=== PATIENT | male | born 1965 | race Caucasian/White ===

== ENCOUNTER → 2022-11-15 | Outpatient (CLI) | payer OTHER ==
[2022-11-15 14:52] LABS: African American GFR (CKD) 110.3 (60.0-200.0); Anion Gap 10.4 mmol/L (10.00-18.00); Carbon Dioxide 25.6 mmol/L (20.0-27.5); Non-African American GFR(CKD) 95.1 (60.0-200.0); Potassium 4.8 mmol/L (3.5-5.5)
== END | disposition home or self-care (01) ==
LOC: LABWHC1 09:07
PROVIDERS: ATTEND Internal Medicine Interventional Cardiology
DX: R06.02 Shortness of breath (principal)
CPT/HCPCS: 36415; 80051; 82565; 84520

== ENCOUNTER → 2023-06-28 | Outpatient (CLI) | payer OTHER ==
--- NOTE | 2023-06-28 15:36 | XR ---
EXAMINATION TYPE: XR chest 2V DATE OF EXAM: 06/28/2023 3:07 PM COMPARISON: None TECHNIQUE: XR chest 2V Frontal and lateral views of the chest. CLINICAL INDICATION:Male, 58 years old with history of R06.02; FINDINGS: Lungs/Pleura: There is no evidence of pleural effusion, focal consolidation, or pneumothorax. Promin ent bilateral perihilar lung markings. Pulmonary vascularity: Unremarkable. Heart/mediastinum: Cardiomediastinal silhouette is unremarkable. Musculoskeletal: No acute osseous pathology. IMPRESSION: Prominent bilateral perihilar lung markings. Correlate for bronchitis.
[2023-06-28 20:45] LABS: HGB 17.3 d/dL (13.0-17.0); MCH 35.1 pg (27.0-32.0); MCHC 35.3 d/dL (32.0-37.0); MCV 99.4 FL (80.0-97.0); NRBC Per 100 WBC 0 X 10*3/uL (0.00-0.01); Platelet Count 104 X 10*3/uL (140-440); RBC 4.93 X 10*6/uL (4.40-5.60); RDW 12.3 % (11.5-14.5); WBC 5.69 X 10*3/uL (4.50-10.00)
[2023-06-28 21:52] LABS: ALT 20 U/L (10-49); AST 29 U/L (14-35); Albumin 4.6 d/dL (3.8-4.9); Albumin/Globulin Ratio 1.84 Ratio (1.60-3.17); Alkaline Phosphatase 81 U/L (41-126); BUN/Creat Ratio 13.67 Ratio (12.00-20.00); Blood Urea Nitrogen 12.3 mg/dL (9.0-27.0); Carbon Dioxide 26.6 mmol/L (21.6-31.8); Chloride 98 mmol/L (96-109); Globulin 2.5 d/dL (1.6-3.3); Glucose 90 mg/dL (70-110); Potassium 6.6 mmol/L (3.5-5.5); Sodium 133 mmol/L (135-145); Total Bilirubin 0.7 mg/dL (0.3-1.2); Total Protein 7.1 d/dL (6.2-8.2)
== END | disposition home or self-care (01) ==
LOC: LABWHC1 14:02
PROVIDERS: ATTEND Internal Medicine Interventional Cardiology
DX: R06.02 Shortness of breath (principal)
CPT/HCPCS: 36415; 71046; 80053; 85027

== ENCOUNTER → 2023-06-29 | Outpatient (CLI) | payer OTHER ==
[2023-06-29 12:23] LABS: African American GFR (CKD) >90 (>60 ml/min/1.73 sqM); Anion Gap 6 mmol/L; Blood Urea Nitrogen 7 mg/dL (9-20); Calcium 9.3 mg/dL (8.4-10.2); Carbon Dioxide 25 mmol/L (22-30); Chloride 100 mmol/L (98-107); Glucose 90 mg/dL (74-99); Non-African American GFR(CKD) >90 (>60 ml/min/1.73 sqM); Potassium 5.6 mmol/L (3.5-5.1); Sodium 131 mmol/L (137-145)
== END | disposition home or self-care (01) ==
LOC: LABWHC1 11:41
PROVIDERS: ATTEND Nurse Practitioner Adult Health
DX: E87.5 Hyperkalemia (principal)
CPT/HCPCS: 36415; 80048

== ENCOUNTER → 2023-07-18 | Outpatient (CLI) | payer OTHER | END | disposition home or self-care (01) | LOC: LABWHC1 10:29 | PROVIDERS: ATTEND Internal Medicine Interventional Cardiology | DX: E87.5 Hyperkalemia (principal) | CPT/HCPCS: 36415; 84132 ==

== ENCOUNTER 2023-08-09 10:03 | Inpatient (IN) | payer OTHER ==
[2023-08-09] MEDS ORDERED: SODIUM CHLORIDE 0.9% 1,000 ML IV ONE (10:22)
[2023-08-09] MEDS ORDERED: DILTIAZEM DRIP BOLUS FROM BAG 1 MG SOLN IV ONE (10:22)
[2023-08-09] MEDS ORDERED: DILTIAZEM 125 MG in SODIUM CHLORIDE 0.9% 100 ML IV SCH (10:30)
[2023-08-09 10:34] LABS: Basophils % (A) 1 %; Eosinophils # (A) 0.1 k/uL (0-0.7); Eosinophils % (A) 1 %; HGB 15.6 gm/dL (13.0-17.5); Lymphocytes % (A) 28 %; MCH 35.5 pg (25.0-35.0); MCHC 33.8 g/dL (31.0-37.0); Macrocytosis Slight; Mean Platelet Volume 9.1; Monocytes # (A) 0.2 k/uL (0-1.0); Monocytes % (A) 3 %; Neutrophils # (A) 4.7 k/uL (1.3-7.7); Neutrophils % (A) 66 %; Platelet Count 136 k/uL (150-450); RBC 4.38 m/uL (4.30-5.90); RDW 13.5 % (11.5-15.5); WBC 7.2 k/uL (3.8-10.6)
[2023-08-09 10:51] LABS: African American GFR (CKD) 76 (>60 ml/min/1.73 sqM); Albumin 3.9 g/dL (3.5-5.0); Anion Gap 13 mmol/L; Blood Urea Nitrogen 20 mg/dL (9-20); Calcium 8.7 mg/dL (8.4-10.2); Carbon Dioxide 16 mmol/L (22-30); Chloride 105 mmol/L (98-107); Glucose 119 mg/dL (74-99); Magnesium 1.6 mg/dL (1.6-2.3); Non-African American GFR(CKD) 66 (>60 ml/min/1.73 sqM); Sodium 134 mmol/L (137-145); Total Protein 6.8 g/dL (6.3-8.2)
[2023-08-09 10:52] LABS: ALT 31 U/L (4-49); AST 49 U/L (17-59); Alkaline Phosphatase 75 U/L (38-126)
[2023-08-09 11:03] LABS: INR 1.3 (<1.2); Partial Thromboplastin Time 26.1 sec (22.0-30.0); Prothrombin Time 13.6 sec (9.0-12.0)
[2023-08-09 11:26] LABS: Potassium 4.3 mmol/L (3.5-5.1)
--- NOTE | 2023-08-09 11:46 | XR ---
EXAMINATION TYPE: XR chest 2V DATE OF EXAM: 08/09/2023 11:40 AM COMPARISON: Chest radiographs from 06/28/2023, CTA chest 08/09/2023 TECHNIQUE: XR chest 2V Frontal and lateral views of the chest. CLINICAL INDICATION:Male, 58 years old with history of dysrhythmia; FINDINGS: Lungs/Pleura: Hyperinflation. Scattered perihilar reticular opacities. Blunting of both costophrenic angles. Heart/mediastinum: Cardiomediastinal silhouette is mildly enlarged. Musculoskeletal: No acute osseous pathology. IMPRESSION: Cardiomegaly with small bilateral pleural effusions and scattered perihilar reticular opacities. Find ings concerning for CHF exacerbation. Correlate with BNP. Superimposed infectious process is not excl uded.
--- NOTE | 2023-08-09 11:49 | CT ---
EXAMINATION TYPE: CT chest angio for PE CT DLP: 252.9 mGycm, Automated exposure control for dose reduction was used. DATE OF EXAM: 08/09/2023 11:37 AM COMPARISON: None CLINICAL INDICATION:Male, 58 years old with history of elevated d-dimer; SOB TECHNIQUE/CONTRAST: CTA scan of the thorax is performed with IV Contrast, patient injected with 90cc mL of Isovue 370, DE P images are created and reviewed these are created on a separate workstation.. FINDINGS: Pulmonary Artery: There is no evidence for a filling defect within the pulmonary vasculature to sugge st acute pulmonary embolism. The pulmonary artery is of normal size. Lungs/Pleura: There are small bilateral pleural effusions. Airway: Large airways are patent. Heart: Heart the heart is enlarged for size. There is moderate to severe coronary artery calcificatio ns. Vasculature: No evidence of aortic aneurysm. Reflux of contrast within the IVC likely secondary to co ngestive heart failure. Mediastinum: No gross evidence of adenopathy. Musculoskeletal: Mild degenerative disc disease changes are present throughout the thoracolumbar spin e. Soft Tissues: Mild gynecomastia changes bilaterally. Lower neck: No significant findings. Upper Abdomen: Small amount of ascites in upper abdomen. Coronal IMPRESSION: 1. No evidence of pulmonary embolism. 2. Cardiomegaly with bilateral pleural effusions and pulmonary vascular congestion correlate for esa estive heart failure. 3. Trace abdominal ascites partially visualized.
[2023-08-09] MEDS ORDERED: ASPIRIN 81 MG PO STA (12:49)
[2023-08-09] MEDS ORDERED: HEPARIN SODIUM 1,000 UN/ML (10ML VL) IV PRN (12:50)
[2023-08-09] MEDS ORDERED: HEPARIN SODIUM 1,000 UN/ML (10ML VL) IV ONE (12:50)
[2023-08-09] MEDS ORDERED: HEPARIN SOD,PORK IN 0.45% NACL 25,000 UNIT in 0.45% NACL 1 250ML.BAG IV SCH (13:00)
--- NOTE | 2023-08-09 13:01 | ED ---
Arrhythmia/Palpitations HPI - General Chief Complaint: Arrhythmia/Palpitations Stated Complaint: SOB Time Seen by Provider: 08/09/23 10:05 Source: patient Mode of arrival: EMS Limitations: no limitations - History of Present Illness Initial Comments: 58-year-old male with no past reported medical history who presents to the emergency department from work. States that he was at work when he became short of breath. States that he gets exertional shortness of breath ever since he had bronchitis one month ago. He denies any palpitations. No chest pain. Upon EMS picking the patient up, it was found that he had a rapid heart rate of 180. They gave him 6 mg of adenosine followed by 12 mg of adenosine with no improvement in his heart rate. He has no history of A. fib. Does follow with Dr. Guerrero for "family history" of heart problems. He does not take a blood thinner. He denies fevers, chills or cough. No nausea or vomiting. No other alleviating, precipitating or modifying factors - Related Data Previous Rx's Medication Instructions Recorded Apixaban [Eliquis] 5 mg PO BID 30 Days #60 tab 08/12/23 Atorvastatin [Lipitor] 40 mg PO HS 30 Days #30 tab 08/12/23 Furosemide [Lasix] 20 mg PO DAILY 7 Days #7 tab 08/12/23 Metoprolol Tartrate [Lopressor] 50 mg PO BID 30 Days #60 tab 08/12/23 Allergies Allergy/AdvReac Type Severity Reaction Status Date / Time Penicillins AdvReac Nausea & Verified 08/09/23 13:53 Vomiting & Diarrhea Review of Systems ROS Statement: Those systems with pertinent positive or pertinent negative responses have been documented in the HPI. ROS Other: All systems not noted in ROS Statement are negative. Past Medical History Past Medical History: Atrial Fibrillation History of Any Multi-Drug Resistant Organisms: None Reported Past Surgical History: No Surgical Hx Reported Past Psychological History: No Psychological Hx Reported Smoking Status: Never smoker Past Alcohol Use History: Occasional Past Drug Use History: None Reported General Exam Limitations: no limitations General appearance: alert, in no apparent distress Head exam: Present: atraumatic, normocephalic, normal inspection Eye exam: Present: normal appearance, PERRL, EOMI. Absent: scleral icterus, conjunctival injection, periorbital swelling ENT exam: Present: normal exam, mucous membranes moist Neck exam: Present: normal inspection. Absent: tenderness, meningismus, lymphadenopathy Respiratory exam: Present: normal lung sounds bilaterally. Absent: respiratory distress, wheezes, rales, rhonchi, stridor Cardiovascular Exam: Present: tachycardia, irregular rhythm, normal heart sounds. Absent: systolic murmur, diastolic murmur, rubs, gallop, clicks GI/Abdominal exam: Present: soft, normal bowel sounds. Absent: distended, tenderness, guarding, rebound, rigid Extremities exam: Present: normal inspection, full ROM, normal capillary refill. Absent: tenderness, pedal edema, joint swelling, calf tenderness Back exam: Present: normal inspection Neurological exam: Present: alert, oriented X3, CN II-XII intact Psychiatric exam: Present: normal affect, normal mood Skin exam: Present: warm, dry, intact, normal color. Absent: rash Course Vital Signs 08/09/23 08/09/23 08/09/23 10:05 10:18 10:54 Temperature 97.0 F L Pulse Rate 172 H 176 H 140 H Pulse Rate [ 176 H Remote Sensing Specialist ] Respiratory 20 18 18 Rate Blood Pressure 122/102 100/59 122/104 O2 Sat by Pulse 99 99 99 Oximetry 08/09/23 08/09/23 08/09/23 11:49 12:24 15:44 Temperature Pulse Rate 132 H 111 H 88 Pulse Rate [ Remote Sensing Specialist ] Respiratory 18 18 18 Rate Blood Pressure 109/86 118/91 125/84 O2 Sat by Pulse 95 99 98 Oximetry 08/09/23 08/09/23 16:22 16:34 Temperature 98.3 F Pulse Rate 126 H Pulse Rate [ Remote Sensing Specialist ] Respiratory 18 Rate Blood Pressure 115/94 O2 Sat by Pulse 99 Oximetry Medical Decision Making - Medical Decision Making Was pt. sent in by a medical professional or institution (, PA, REAL ESTATE ACCOUNTANT, urgent care, hospital, or shelter...) When possible be specific @ -No Did you speak to anyone other than the patient for history (EMS, parent, family, police, friend...)? What history was obtained from this source @ -EMS Did you review nursing and triage notes (agree or disagree)? Why? @ -I reviewed and agree with nursing and triage notes Were old charts reviewed (outside hosp., previous admission, EMS record, old EKG, old radiological studies, urgent care reports/EKG's, shelter records)? Report findings @ -No old charts were reviewed Differential Diagnosis (chest pain, altered mental status, abdominal pain women, abdominal pain men, vaginal bleeding, weakness, fever, dyspnea, syncope, headache, dizziness, GI bleed, back pain, seizure, CVA, palpatations, mental health, musculoskeletal)? @ -Differential Palpitations Ventricular arrhythmias, atrial arrhythmias, myocardial infarction, anemia, thyrotoxicosis, electrolyte imbalance, hypokalemia, pulmonary embolism, pulmonary disease, drugs, alcohol, anxiety, stress.... This is not meant to be an all-inclusive list. EKG interpreted by me (3pts min.). @ -Yes and demonstrates A. fib with rate of 178. QRS 85. QTC of 341. No acute ST segment elevations or depressions. Q waves in inferior leads X-rays interpreted by me (1pt min.). @ -Yes and demonstrates some mild vascular congestion with pleural effusions CT interpreted by me (1pt min.). @ -Yes, no evidence of PE. Evidence of heart failure U/S interpreted by me (1pt. min.). @ -None done What testing was considered but not performed or refused? (CT, X-rays, U/S, labs)? Why? @ -None What meds were considered but not given or refused? Why? @ -None Did you discuss the management of the patient with other professionals (professionals i.e. , PA, REAL ESTATE ACCOUNTANT, lab, RT, psych nurse, social service technician, risk management specialist, teacher, antisubmarine weapons officer, case maker)? Give summary @ -Spoke with cardiology, [place] with Dr. Correa. I also spoke with Dr. Francisco Was smoking cessation discussed for >3mins.? @ -No Was critical care preformed (if so, how long)? @ -Yes, 35 minutes for management of A. fib with RVR Were there social determinants of health that impacted care today? How? (Homelessness, low income, unemployed, alcoholism, drug addiction, transportation, low edu. Level, literacy, decrease access to med. care, care home, rehab)? @ -No Was there de-escalation of care discussed even if they declined (Discuss DNR or withdrawal of care, Hospice)? DNR status @ -No What co-morbidities impacted this encounter? (DM, HTN, Smoking, COPD, CAD, Cancer, CVA, ARF, Chemo, Hep., AIDS, mental health diagnosis, sleep apnea, morbid obesity)? @ -None Was patient admitted / discharged? Hospital course, mention meds given and route, prescriptions, significant lab abnormalities, going to OR and other pertinent info. @ -Admitted. Upon arrival patient was placed in a trauma 3. He has a markedly elevated heart rate. IV is established and laboratory studies are conducted. He was started on a Cardizem drip. Laboratory studies are conducted and demonstrates that the patient has an elevated troponin level. He is started on a heparin drip. Patient does have improvement in his heart rate. He will be admitted for cardiology consultation. Spoke with Dr. Correa and Dr. Francisco. Undiagnosed new problem with uncertain prognosis? @ -yes Drug Therapy requiring intensive monitoring for toxicity (Heparin, Nitro, Insulin, Cardizem)? @ -yes, cardizem and heparin Were any procedures done? @ -No Diagnosis/symptom? @ -Acute palpitations, new-onset A. fib with RVR, acute exacerbation of congestive heart failure, nSTEMI Acute, or Chronic, or Acute on Chronic? @ -Acute Uncomplicated (without systemic symptoms) or Complicated (systemic symptoms)? @ -Complicated Side effects of treatment? @ -No Exacerbation, Progression, or Severe Exacerbation? @ -No Poses a threat to life or bodily function? How? (Chest pain, USA, MD, pneumonia, PE, COPD, DKA, ARF, appy, cholecystitis, CVA, Diverticulitis, Homicidal, Suicida l, threat to staff... and all critical care pts) @ -Yes patient has significantly elevated heart rate upon arrival - Lab Data Result diagrams: 08/09/23 10:22 08/10/23 10:34 Lab Results 08/09/23 08/09/23 08/09/23 Range/Units 10:22 10:22 10:22 WBC 7.2 (3.8-10.6) k/uL RBC 4.38 (4.30-5.90) m/uL Hgb 15.6 (13.0-17.5) gm/dL Hct 46.0 (39.0-53.0) % MCV 105.0 H (80.0-100.0) fL MCH 35.5 H (25.0-35.0) pg MCHC 33.8 (31.0-37.0) g/dL RDW 13.5 (11.5-15.5) % Plt Count 136 L (150-450) k/uL MPV 9.1 Neutrophils % 66 % Lymphocytes % 28 % Monocytes % 3 % Eosinophils % 1 % Basophils % 1 % Neutrophils # 4.7 (1.3-7.7) k/uL Lymphocytes # 2.0 (1.0-4.8) k/uL Monocytes # 0.2 (0-1.0) k/uL Eosinophils # 0.1 (0-0.7) k/uL Basophils # 0.0 (0-0.2) k/uL Macrocytosis Slight PT 13.6 H (9.0-12.0) sec INR 1.3 H (<1.2) APTT 26.1 (22.0-30.0) sec D-Dimer 4.81 H (<0.60) mg/L FEU Sodium 134 L (137-145) mmol/L Potassium 4.3 (3.5-5.1) mmol/L Chloride 105 (98-107) mmol/L Carbon Dioxide 16 L (22-30) mmol/L Anion Gap 13 mmol/L BUN 20 (9-20) mg/dL Creatinine 1.22 (0.66-1.25) mg/dL Est GFR (CKD-EPI)AfAm 76 (>60 ml/min/1.73 sqM) Est GFR (CKD-EPI)NonAf 66 (>60 ml/min/1.73 sqM) Glucose 119 H (74-99) mg/dL Calcium 8.7 (8.4-10.2) mg/dL Magnesium 1.6 (1.6-2.3) mg/dL Total Bilirubin 2.0 H (0.2-1.3) mg/dL AST 49 (17-59) U/L ALT 31 (4-49) U/L Alkaline Phosphatase 75 (38-126) U/L Troponin I (0.000-0.034) ng/mL NT-Pro-B Natriuret Pep pg/mL Total Protein 6.8 (6.3-8.2) g/dL Albumin 3.9 (3.5-5.0) g/dL TSH 3.390 (0.465-4.680) mIU/L 10/10/23 10/10/23 Range/Units 10:22 10:22 WBC (3.8-10.6) k/uL RBC (4.30-5.90) m/uL Hgb (13.0-17.5) gm/dL Hct (39.0-53.0) % MCV (80.0-100.0) fL MCH (25.0-35.0) pg MCHC (31.0-37.0) g/dL RDW (11.5-15.5) % Plt Count (150-450) k/uL MPV Neutrophils % % Lymphocytes % % Monocytes % % Eosinophils % % Basophils % % Neutrophils # (1.3-7.7) k/uL Lymphocytes # (1.0-4.8) k/uL Monocytes # (0-1.0) k/uL Eosinophils # (0-0.7) k/uL Basophils # (0-0.2) k/uL Macrocytosis PT (9.0-12.0) sec INR (<1.2) APTT (22.0-30.0) sec D-Dimer (<0.60) mg/L FEU Sodium (137-145) mmol/L Potassium (3.5-5.1) mmol/L Chloride (98-107) mmol/L Carbon Dioxide (22-30) mmol/L Anion Gap mmol/L BUN (9-20) mg/dL Creatinine (0.66-1.25) mg/dL Est GFR (CKD-EPI)AfAm (>60 ml/min/1.73 sqM) Est GFR (CKD-EPI)NonAf (>60 ml/min/1.73 sqM) Glucose (74-99) mg/dL Calcium (8.4-10.2) mg/dL Magnesium (1.6-2.3) mg/dL Total Bilirubin (0.2-1.3) mg/dL AST (17-59) U/L ALT (4-49) U/L Alkaline Phosphatase (38-126) U/L Troponin I 0.109 H* (0.000-0.034) ng/mL NT-Pro-B Natriuret Pep 3910 pg/mL Total Protein (6.3-8.2) g/dL Albumin (3.5-5.0) g/dL TSH (0.465-4.680) mIU/L Disposition Clinical Impression: Atrial fibrillation with RVR, Pulmonary edema, NSTEMI (non-ST elevated myocardial infarction) Disposition: ADMITTED IP TO THIS HOSP Condition: Stable Is patient prescribed a controlled substance at d/c from ED?: No Time of Disposition: 13:08 Decision to Admit Reason: Admit from EC Decision Date: 08/09/23 Decision Time: 13:08
[2023-08-09] MEDS ORDERED: NALOXONE 0.4 MG/ML 1 ML VIAL IV PRN (13:08)
[2023-08-09] MEDS: MAGNESIUM SULFATE-D5W PMX 1 GM in DEXTROSE/WATER 1 100ML.BAG IVPB SCH ×2 (15:08→16:25)
--- NOTE | 2023-08-09 19:33 | P.HPIM ---
History of Present Illness H&P Date: 08/09/23 History of Presenting Illness: Patient is a very pleasant 58-year-old male with a past medical history of reported previous nicotine dependence and previous alcohol use but denies abuse. He presented to the emergency department with a chief complaint of shortness of breath. Patient reports he was recently diagnosed with bronchitis approximately one month ago and underwent treatment with a Z-Vu. Patient reports he felt better for a short period of time but then noticed persistent exertional shortness of breath with a productive cough. Patient reports this exertional shortness of breath progressively worsened and is now having shortness of breath at rest. Patient states that he went to work today and was bending over and picking things up and became very lightheaded/dizzy felt some mild pressure to his midsternal chest and became very short of breath, he reports his coworkers surrounded him and called EMS. Per ED documentation patient was found by EMS to have a rapid ventricular rate of 180 and received a dose of 6 mg of adenosine followed by a 12 mg dose of adenosine with no improvement in heart rate. Upon arrival to the emergency department patient was found to be in A. fib RVR. Ventricular rate upon arrival 170s with blood pressure 122/102, respiratory rate 20, temp 97.0F, SpO2 99% on room air. EKG was completed showing atrial fibrillation with RVR to 178 bpm. Labs completed and reviewed. CBC showing thrombocytopenia with platelet ount of 136. Coagulation profile showing elevated PT 13.6, INR 1.3, and D-Dimer 4.81. BMP showing mild hyponatremia with sodium 134, Carbon dioxide 16 and glucose of 119. Liver profile Total bili 2.0. Troponins elevated at 0.109. CXR showing cardiomegally with small bilateral pleural effusions and scattered perihilar reticular opacities consistent with CHF exacerbation. Review of systems: Pertinent positives and negatives as discussed in HPI, a complete review of systems was performed and all other systems are negative. Physical exam: Vital signs reviewed and stable. General: Nontoxic, no distress and appears stated age. Derm: Skin warm and dry, normal coloration for ethnicity. Head: Atraumatic, normocephalic and symmetric. Eyes: EOMs intact, no lid lag, and anicteric sclera Mouth: no lip lesions, mucus membranes moist Cardiovascular: Irregularly irregular with systolic murmur, positive posterior tibial pulses bilaterally, and cap refill < 2 seconds. Lungs: Respirations even, regular, and unlabored on room air. Lungs CTA bilaterally, no rhonchi, no rales, no wheezing, and no accessory muscle usage. Abdominal: soft, nontender to palpation, no guarding, no appreciable organ omegaly Ext: ROM intact. No gross muscle atrophy, 1+ pitting edema, no contractures Neuro: Speech clear, face symmetrical and CN II-XII grossly intact with no noted focal neuro deficits Psych: Alert and oriented to person, place, time, and situation. Appropriate and pleasant affect. Assessment and Plan of Care: Atrophic fibrillation with RVR Acute exacerbation of congestive heart failure, unknown type pending echocardiogram. Likely secondary to RVR Elevated troponins, likely type II NSTEMI resulting from prolonged RVR Exertional shortness of breath -Cardiology consulted -Telemetry monitoring -Trend troponins -ProBNP 3910. TSH was normal findings at 3.390. -Daily weights -Close monitoring of I's and O's -Continue Cardizem infusion for rate control pending echocardiogram results and patient was started on metoprolol 25 mg twice daily. -Continue anticoagulation with heparin infusion -Lasix 40 mg IVP every 12 hours -Patient started on Aspirin 81 mg daily, atorvastatin 40 mg daily, and metoprolol 25 mg twice daily -Continued close monitoring of electrolytes while diuresing. Data and imaging reviewed: -Vital signs reviewed. Ventricular rate upon arrival 170s with blood pressure 122/102, respiratory rate 20, temp 97.0F, SpO2 99% on room air. -EKG was completed showing atrial fibrillation with RVR to 178 bpm upon personal review and interpretation. -Labs completed and reviewed. CBC showing thrombocytopenia with platelet ount of 136. Coagulation profile showing elevated PT 13.6, INR 1.3, and D-Dimer 4.81. BMP showing mild hyponatremia with sodium 134, Carbon dioxide 16 and glucose of 119. Liver profile Total bili 2.0. Troponins elevated at 0.109. -CXR showing cardiomegally with small bilateral pleural effusions and scattered perihilar reticular opacities consistent with CHF exacerbation. -CTA chest completed negative for pulmonary emboli revealing cardiomegaly with bilateral pleural effusions and pulmonary vascular congestion consistent with congestive heart failure. Discussed plan of care with ED physician, patient being admitted to cardiac stepdown unit with expected length of stay greater than 2 nights. CODE STATUS: Full code DVT prophylaxis: heparin infusion Anticipated discharge date: Clinical course to determine Anticipated discharge place: home Patient was seen independently by Nurse Practitioner. This document was prepared using [facility] dictation software. Please allow for errors in admission liaison while rare they do occur. Shant Reynoso NP rendered care for this patient independently, reviewed the findings and plan as documented in the note above. I did not physically speak with or examine the patient on this date. Past Medical History Past Medical History: Atrial Fibrillation History of Any Multi-Drug Resistant Organisms: None Reported Past Surgical History: No Surgical Hx Reported Past Psychological History: No Psychological Hx Reported Smoking Status: Never smoker Past Alcohol Use History: Occasional Past Drug Use History: None Reported Medications and Allergies Home Medications Medication Instructions Recorded Confirmed Type Ibuprofen [Advil] 400 mg PO Q8HR PRN 08/09/23 08/09/23 History Allergies Allergy/AdvReac Type Severity Reaction Status Date / Time Penicillins AdvReac Nausea & Verified 08/09/23 13:53 Vomiting & Diarrhea Physical Exam Vitals: Vital Signs Temp Pulse Pulse Resp BP Pulse Ox 08/09/23 12:24 111 H 18 118/91 99 08/09/23 11:49 132 H 18 109/86 95 08/09/23 10:54 140 H 18 122/104 99 08/09/23 10:18 176 H 176 H 18 100/59 99 08/09/23 10:05 97.0 F L 172 H 20 122/102 99 Intake and Output 08/08/23 08/09/23 08/09/23 22:59 06:59 14:59 Other: Weight 58.967 kg Results CBC & Chem 7: 08/09/23 10:22 08/10/23 10:34 Labs: Abnormal Lab Results - Last 24 Hours (Table) 08/09/23 08/09/23 08/09/23 Range/Units 10: 10: 10: MCV 105.0 H (80.0-100.0) fL MCH 35.5 H (25.0-35.0) pg Plt Count 136 L (150-450) k/uL PT 13.6 H (9.0-12.0) sec INR 1.3 H (<1.2) D-Dimer 4.81 H (<0.60) mg/L FEU Sodium 134 L (137-145) mmol/L Carbon Dioxide 16 L (22-30) mmol/L Glucose 119 H (74-99) mg/dL Total Bilirubin 2.0 H (0.2-1.3) mg/dL Troponin I (0.000-0.034) ng/mL 08/09/23 Range/Units 10:22 MCV (80.0-100.0) fL MCH (25.0-35.0) pg Plt Count (150-450) k/uL PT (9.0-12.0) sec INR (<1.2) D-Dimer (<0.60) mg/L FEU Sodium (137-145) mmol/L Carbon Dioxide (22-30) mmol/L Glucose (74-99) mg/dL Total Bilirubin (0.2-1.3) mg/dL Troponin I 0.109 H* (0.000-0.034) ng/mL
[2023-08-09] MEDS: ATORVASTATIN 40 MG TAB PO SCH (20:29)
[2023-08-09 20:51] LABS: Amphetamine Screen,Urine Not Detected (NotDetected); Barbiturate Screen,Urine Not Detected (NotDetected); Benzodiazepines Screen,Urine Not Detected (NotDetected); Cocaine Screen,Urine Not Detected (NotDetected); Methadone Screen, Urine Not Detected (NotDetected); Opiate Screen,Urine Not Detected (NotDetected); Oxycodone Screen, Urine Not Detected (NotDetected); Phencyclidine Screen,Urine Not Detected (NotDetected); Tricyclic Antidepressant,Urine Not Detected (NotDetected); Urn Cannabinoid Scrn Not Detected (NotDetected)
[2023-08-09] MEDS ORDERED: METOPROLOL TARTRATE 25 MG TAB PO SCH (21:00)
[2023-08-09] MEDS ORDERED: FUROSEMIDE 10 MG/ML 4 ML VIAL IV SCH (21:00)
[2023-08-10] MEDS ORDERED: ASPIRIN 81 MG PO SCH (09:00)
[2023-08-10] MEDS: APIXABAN 5 MG TAB PO SCH ×2 (09:30→19:57)
[2023-08-10] MEDS: METOPROLOL TARTRATE 50 MG TAB PO SCH ×2 (09:31→19:57)
[2023-08-10 11:28] LABS: African American GFR (CKD) >90 (>60 ml/min/1.73 sqM); Anion Gap 8 mmol/L; Blood Urea Nitrogen 17 mg/dL (9-20); Calcium 8.6 mg/dL (8.4-10.2); Carbon Dioxide 25 mmol/L (22-30); Chloride 104 mmol/L (98-107); Glucose 81 mg/dL (74-99); Non-African American GFR(CKD) >90 (>60 ml/min/1.73 sqM); Potassium 3.5 mmol/L (3.5-5.1); Sodium 137 mmol/L (137-145)
--- NOTE | 2023-08-10 12:56 | P.CRDCN ---
History of Present Illness Consult date: 08/10/23 Consult reason: atrial fibrillation (New-onset) History of present illness: History of present illness: This is a 58-year-old male patient of Dr. Guerrero with past medical history of moderate MR, family history of premature coronary artery disease, active tobacco use. Patient was last in the office on June 28. He did not have any shortness of breath or any symptoms at that time. He states he was recently treated for pneumonia and bronchitis and was offered for a week. He returned to work and was lifting parts and became very dizzy thought he was going to pass out, generalized weakness that his legs were going to give out on him. He also had some chest pressure and a new onset of shortness of breath that he has not had before. He came into the emergency center and was found to have atrial fibrillation with RVR and was started on heparin drip and Cardizem drip at 5 mg per hour. Telemetry is currently atrial fibrillation with controlled rate in the 80s. Patient has also been started on Lasix 40 mg IV every 12 hours and Lopressor 25 mg twice daily. Patient states he feels very tired now. Patient is an active smoker. He is normally drinking 6 beers per day but has cut back due to treatment for pneumonia recently. EKG atrial fibrillation at [address]-T wave changes. Old Q waves in the anterior leads with conduction delay Chest x-ray: Cardiomegaly CTA of the chest negative for pulmonary embolism TSH 3.39. Troponin 0.89, 0.087, 0.109. Sodium 137, potassium 3.5, creatinine 0.93. ProBNP 3910. INR 1.3. D-dimer 4.81. Urine drug screen negative. Influenza A, influenza B, Covid 19 not detected Home cardiac medications: None Review Of Systems: At the time of my evaluation: Constitutional: No fever, no chills. + weakness, + fatigue no lethargy. EENT: No headache. No dizziness. Lungs: No shortness of breath, cough, no sputum production. No wheezing. Cardiovascular: No chest pain, no lower extremity edema. No palpitations. No paroxysmal nocturnal dyspnea. No orthopnea. No lightheadedness or dizziness. No syncopal episodes. Abdominal: No abdominal pain. No nausea, vomiting. No diarrhea. No constipation. No bloody or tarry stools. Genitourinary: No dysuria.. No urinary retention. Musculoskeletal: No myalgias. No muscle weakness, no frequent falls. No back pain. No neck pain. Integumentary: No wounds. No rash. No unusual bruising. Neurologic: No aphasia. No facial droop. No change in mentation. No head injury. No headache. Physical examination: Gen: This is a 58-year-old male. He is resting in bed and appears to be comfortable and in no acute distress VS: reviewed HEENT: Head is atraumatic, normocephalic. Pupils equal, round. Sclerae is anicteric. NECK: Supple. No JVD. LUNGS: Clear to auscultation. No wheezes or rhonchi. No intercostal retracti ons. HEART: Irregular rate and rhythm. 2/6 systolic murmur. ABDOMEN: Soft No tenderness. EXTREMITIES: No pedal edema. No calf tenderness. NEUROLOGICAL: Patient is awake, alert and oriented x3. Assessment: New-onset A. fib with RVR, paroxysmal atrial fibrillation Moderate MR, moderate TR Elevated troponins most likely secondary to atrial fibrillation with RVR Family history of premature coronary artery disease Active tobacco use and dependence Alcohol use Plan: Discontinue heparin drip and Cardizem drip Increase metoprolol to 50 mg twice daily Start patient on eliquis 5 mg twice daily Discontinue aspirin, continue Lipitor Schedule patient for MARTHA and cardioversion for tomorrow with Dr. Guerrero Obtain 2-D echocardiogram and Doppler study to assess cardiac structure and function Smoking cessation Alcohol cessation Further recommendations to follow based upon clinical course Thank you kindly for this consultation. Nurse practitioner note has been reviewed, I agree with documented findings and plan of care. Patient was seen and examined. Past Medical History Past Medical History: Atrial Fibrillation Additional Past Medical History / Comment(s): pt denies any medical history History of Any Multi-Drug Resistant Organisms: None Reported Past Surgical History: No Surgical Hx Reported Past Anesthesia/Blood Transfusion Reactions: No Reported Reaction Past Psychological History: No Psychological Hx Reported Smoking Status: Never smoker Past Alcohol Use History: Occasional Past Drug Use History: None Reported Medications and Allergies Home Medications Medication Instructions Recorded Confirmed Type Ibuprofen [Advil] 400 mg PO Q8HR PRN 08/09/23 08/09/23 History Allergies Allergy/AdvReac Type Severity Reaction Status Date / Time Penicillins AdvReac Nausea & Verified 08/09/23 13:53 Vomiting & Diarrhea Physical Exam Vitals: Vital Signs Temp Pulse Pulse Pulse Resp BP BP 08/10/23 03:28 97.6 F 80 18 133/66 08/09/23 23:20 97.9 F 66 17 109/73 08/09/23 19:51 97.8 F 78 18 115/84 08/09/23 17:35 97.5 F L 123 H 18 138/86 08/09/23 16:34 98.3 F 08/09/23 16:22 126 H 18 115/94 08/09/23 15:44 88 18 125/84 08/09/23 12:24 111 H 18 118/91 08/09/23 11:49 132 H 18 109/86 08/09/23 10:54 140 H 18 122/104 08/09/23 10:18 176 H 176 H 18 100/59 08/09/23 10:05 97.0 F L 172 H 20 122/102 Pulse Ox 08/10/23 03:28 94 L 08/09/23 23:20 97 08/09/23 19:51 98 08/09/23 17:35 97 08/09/23 16:34 08/09/23 16:22 99 08/09/23 15:44 98 08/09/23 12:24 99 08/09/23 11:49 95 08/09/23 10:54 99 08/09/23 10:18 99 08/09/23 10:05 99 Intake and Output 08/09/23 08/10/23 08/10/23 22:59 06:59 14:59 Intake Total 0 Output Total 925 200 Balance -925 -200 Intake: Oral 0 Output: Urine 925 200 Other: Voiding Method Toilet Toilet Urinal Urinal Weight 58.967 kg Results 08/09/23 10:22 08/10/23 10:34 Cardiac Enzymes 08/09/23 08/09/23 08/09/23 Range/Units 10:22 10:22 16:19 AST 49 (17-59) U/L Troponin I 0.109 H* 0.087 H* (0.000-0.034) ng/mL 08/09/23 Range/Units 18:46 AST (17-59) U/L Troponin I 0.089 H* (0.000-0.034) ng/mL Coagulation 08/09/23 08/09/23 Range/Units 10: 18:46 PT 13.6 H (9.0-12.0) sec APTT 26.1 62.8 H (22.0-30.0) sec CBC 08/09/23 Range/Units 10: WBC 7.2 (3.8-10.6) k/uL RBC 4.38 (4.30-5.90) m/uL Hgb 15.6 (13.0-17.5) gm/dL Hct 46.0 (39.0-53.0) % Plt Count 136 L (150-450) k/uL Comprehensive Metabolic Panel 08/09/23 Range/Units 10: Sodium 134 L (137-145) mmol/L Potassium 4.3 (3.5-5.1) mmol/L Chloride 105 (98-107) mmol/L Carbon Dioxide 16 L (22-30) mmol/L BUN 20 (9-20) mg/dL Creatinine 1.22 (0.66-1.25) mg/dL Glucose 119 H (74-99) mg/dL Calcium 8.7 (8.4-10.2) mg/dL AST 49 (17-59) U/L ALT 31 (4-49) U/L Alkaline Phosphatase 75 (38-126) U/L Total Protein 6.8 (6.3-8.2) g/dL Albumin 3.9 (3.5-5.0) g/dL Current Medications Generic Name Dose Route Start Last Admin Trade Name Freq PRN Reason Stop Dose Admin Aspirin 81 mg 08/10/23 09:00 Aspirin 81 Mg PO DAILY MIQUEL Atorvastatin Calcium 40 mg 08/09/23 21:00 08/09/23 20:29 Atorvastatin 40 Mg Tab PO 40 mg HS MIQUEL Administration Furosemide 40 mg 08/09/23 21:00 08/09/23 20:29 Furosemide 10 Mg/Ml 4 Ml Vial IV 40 mg Q12HR MIQUEL Administration Heparin Sodium (Porcine) 0 unit 08/09/23 12:50 Heparin Sodium 1,000 Un/Ml (10ml Vl) IV PER PROTOCOL PRN Low PTT Protocol Diltiazem HCl 125 mg/ Sodium 125 mls @ 5 mls/hr 08/09/23 10:30 08/09/23 10:34 Chloride IV 5 mls/hr .Q24H MIQUEL 5 mls/hr Administration Protocol Per Protocol Heparin Sodium/Sodium Chloride 250 mls @ 7.076 mls/hr 08/09/23 13:00 08/09/23 15:07 25,000 unit/ Sodium Chloride IV 12 units/kg/hr .Q24H MIQUEL 7.076 mls/hr Administration Protocol 12 UNITS/KG/HR Metoprolol Tartrate 25 mg 08/09/23 21:00 08/09/23 20:29 Metoprolol Tartrate 25 Mg Tab PO 25 mg BID MIQUEL Administration Naloxone HCl 0.2 mg 08/09/23 13:08 Naloxone 0.4 Mg/Ml 1 Ml Vial IV Q2M PRN Opioid Reversal Intake and Output 08/09/23 08/10/23 08/10/23 22:59 06:59 14:59 Intake Total 0 Output Total 925 200 Balance -925 -200 Intake: Oral 0 Output: Urine 925 200 Other: Voiding Method Toilet Toilet Urinal Urinal Weight 58.967 kg 08/09/23 10:22 08/09/23 10:22
--- NOTE | 2023-08-10 18:29 | P.PN ---
Subjective Progress Note Date: 08/10/23 Hospital course: Patient is a very pleasant 58-year-old male with a past medical history of reported previous nicotine dependence and previous alcohol use but denies abuse. He presented to the emergency department with a chief complaint of shortness of breath. Patient reports he was recently diagnosed with bronchitis approximately one month ago and underwent treatment with a Z-Vu. Patient reports he felt better for a short period of time but then noticed persistent exertional shortness of breath with a productive cough. Patient reports this exertional shortness of breath progressively worsened and is now having shortness of breath at rest. Patient states that he went to work today and was bending over and picking things up and became very lightheaded/dizzy felt some mild pressure to his midsternal chest and became very short of breath, he reports his coworkers surrounded him and called EMS. Per ED documentation patient was found by EMS to have a rapid ventricular rate of 180 and received a dose of 6 mg of adenosine followed by a 12 mg dose of adenosine with no improvement in heart rate. Upon arrival to the emergency department patient was found to be in A. fib RVR. Ventricular rate upon arrival 170s with blood pressure 122/102, respiratory rate 20, temp 97.0F, SpO2 99% on room air. EKG was completed showing atrial fibrillation with RVR to 178 bpm. Labs completed and reviewed. CBC showing thrombocytopenia with platelet ount of 136. Coagulation profile showing elevated PT 13.6, INR 1.3, and D-Dimer 4.81. BMP showing mild hyponatremia with sodium 134, Carbon dioxide 16 and glucose of 119. Liver profile Total bili 2.0. Troponins elevated at 0.109. CXR showing cardiomegally with small bilateral pleural effusions and scattered perihilar reticular opacities consistent with CHF exacerbation. Urine drug screen negative. Covid PCR, influenza A, influenza B were all negative. Patient admitted under services of consultation to cardiology. Physical exam: Patient seen and fully evaluated at bedside this morning. He remains in atrial fibrillation with a controlled ventricular rate ranging between 70s and 120s. Cardizem infusion and heparin was stopped and cardiology increasing metoprolol to 50 mg twice daily and placing patient on Eliquis 5 mg twice daily. Vital signs reviewed and stable. General: Nontoxic, no distress and appears stated age. Derm: Skin warm and dry, normal coloration for ethnicity. Head: Atraumatic, normocephalic and symmetric. Eyes: EOMs intact, no lid lag, and anicteric sclera Mouth: no lip lesions, mucus membranes moist Cardiovascular: Irregularly irregular with systolic murmur, positive posterior tibial pulses bilaterally, and cap refill < 2 seconds. Lungs: Respirations even, regular, and unlabored on room air. Lungs CTA bilaterally, no rhonchi, no rales, no wheezing, and no accessory muscle usage. Abdominal: soft, nontender to palpation, no guarding, no appreciable organomegaly Ext: ROM intact. No gross muscle atrophy, 1+ pitting edema, no contractures Neuro: Speech clear, face symmetrical and CN II-XII grossly intact with no noted focal neuro deficits Psych: Alert and oriented to person, place, time, and situation. Appropriate and pleasant affect. Assessment and Plan of Care: Atrophic fibrillation with RVR Acute exacerbation of congestive heart failure, unknown type pending ec hocardiogram. Likely secondary to RVR Elevated troponins, likely type II NSTEMI resulting from prolonged RVR Exertional shortness of breath -Cardiology following and discussed plan of care cardiac and P stating postal carrier planning to take patient for cardioversion tomorrow morning. -Telemetry monitoring -ProBNP 3910. Troponins trended overnight resulting at 0.109, 0.087, and 0.089. TSH was normal findings at 3.390. -Daily weights -Close monitoring of I's and O's. Patient has had a documented output of 1125 mL over the past 24 hours. -Continue metoprolol, dose increased to 50 mg twice a day. -Continue anticoagulation with Eliquis 5 mg twice a day. -Continuation of Lasix 40 mg IVP twice daily. -Continued close monitoring of electrolytes while diuresing. Data and imaging reviewed: -Vital signs reviewed. Blood pressure 118/66, heart rate 73, respiratory rate 16, temp 98.0F, SpO2 of 96% on room air. CODE STATUS: Full code DVT prophylaxis: Eliquis Anticipated discharge date: Clinical course to determine Anticipated discharge place: home Patient was seen independently by Nurse Practitioner. This document was prepared using [employer] dictation software. Please allow for errors in survey technologist while rare they do occur. Objective - Vital Signs Vital signs: Vital Signs Temp 97.6 F 08/10/23 16:00 Pulse 109 H 08/10/23 16:00 Resp 16 08/10/23 12:00 BP 115/83 08/10/23 16:00 Pulse Ox 97 08/10/23 16:00 FiO2 Intake & Output 08/09/23 08/10/23 08/10/23 18:59 06:59 18:59 Intake Total 0 225 Output Total 1125 Balance 0 -1125 225 Weight 58.967 kg Intake: Oral 0 225 Output: Urine 1125 Other: Voiding Method Toilet Toilet Urinal Urinal - Labs CBC & Chem 7: 08/09/23 10:22 08/10/23 10:34 Labs: Abnormal Lab Results - Last 24 Hours (Table) 08/09/23 08/09/23 Range/Units 18:46 18:46 APTT 62.8 H (22.0-30.0) sec Troponin I 0.089 H* (0.000-0.034) ng/mL
[2023-08-10] MEDS: ATORVASTATIN 40 MG TAB PO SCH (19:57)
[2023-08-11] MEDS ORDERED: SODIUM CHLORIDE 0.9% 1,000 ML IV ONE ×2 (07:10)
[2023-08-11] MEDS ORDERED: LIDOCAINE 1% INJ 10MG/ML (20 ML MDV) ONE (07:10)
[2023-08-11] MEDS ORDERED: PHENYLEPHRINE-0.9% NACL SYG 1,000 MCG/10 ML SYRINGE ONE (07:10)
[2023-08-11] MEDS ORDERED: PROPOFOL 10 MG/ML 20 ML VIAL IV ONE (07:10)
--- NOTE | 2023-08-11 07:44 | P.PCN ---
Date of Procedure: 08/11/23 Description of Procedure: Indication: Atrial fibrillation Procedure Description: After explaining the procedure to the patient, it's risk and complications, blood pressure, heart rate and O2 saturation were monitored. The throat was sprayed with Cetacaine. Sedation per anesthesia department. The probe was introduced into the esophagus without difficulty. Images were obtained. Following that, the probe was removed. There was no immediate complication. Findings: Biatrial enlargement was noted, left atrial appendage is normal. Left ventricle size and systolic function are normal. The aortic valve revealed mild thickening with preserved opening. Severe thickening of the mitral valve leaflets with prolapse was noted. The tricuspid valve appears to be thickened. Descending thoracic aorta is normal. Contrast bubble study revealed no shunting across the intra-atrial septum. No pericardial effusion was noted. Doppler: Pulse wave and color Doppler were obtained, severe eccentric mitral regurgitation with moderate to severe tricuspid regurgitation. There is no shunting by color Doppler study. Conclusion: 1. Biatrial enlargement 2. Normal ventricle size and systolic function 3. Normal appearance of the left atrial appendage 4. Mitral valve prolapse with severe eccentric mitral regurgitation 5. Moderate to severe tricuspid regurgitation Cardioversion: After obtaining MARTHA and obtaining sedated state a synchronized cardioversion using 120 J and subsequently 150 J was successful in restoring sinus mechanism, it was no immediate complications.
[2023-08-11] MEDS ORDERED: SODIUM CHLORIDE 0.9% 1,000 ML IV SCH (07:45)
[2023-08-11] MEDS: APIXABAN 5 MG TAB PO SCH ×2 (08:53→20:59)
[2023-08-11] MEDS: METOPROLOL TARTRATE 50 MG TAB PO SCH ×2 (08:53→20:59)
--- NOTE | 2023-08-11 10:06 | CA ---
Transthoracic Echo Report Name: Zana Roblero Age: 58 Gender: M : 1965 Exam Date: 08/10/2023 08:00 Exam Location: [facility] Ht (in): 69 Wt (lb): 130 Ordering Physician: Shant Reynoso Attending/Referring Phys: Dmitry Olson PAC Electrician Assistant Azam Du Procedure CPT: Indications: evaluate structure and function, Afib RVR Cardiac Hx: Technical Quality: Fair Contrast 1: Total Dose (mL): Contrast 2: Total Dose (mL): MEASUREMENTS (Male / Female) Normal Values 2D ECHO LV Diastolic Diameter PLAX 3.7 cm 4.2 - 5.9 / 3.9 - 5.3 cm LV Systolic Diameter PLAX 3.1 cm IVS Diastolic Thickness 1.3 cm 0.6 - 1.0 / 0.6 - 0.9 cm LVPW Diastolic Thickness 1.1 cm 0.6 - 1.0 / 0.6 - 0.9 cm LV Relative Wall Thickness 0.6 RV Internal Dim ED PLAX 3.2 cm LVOT Diameter 2.1 cm Aortic Root Diameter 2.8 cm LA Systolic Diameter LX 4.3 cm 3.0 - 4.0 / 2.7 - 3.8 cm LV Diastolic Volume MOD 4C 31.6 cm??? LV Systolic Volume MOD 4C 16.9 cm??? LV Ejection Fraction MOD 4C 46.6 % LV Cardiac Index MOD 4C 734.2 cm???/min???m??? LV Diastolic Length 4C 6.0 cm LV Systolic Length 4C 4.9 cm LA Volume 62.2 cm??? 18 - 58 / 22 - 52 cm??? LA Volume Index 36.9 cm???/m??? 16 - 28 cm???/m??? Ascending Aorta Diameter 2.7 cm DOPPLER AV Peak Velocity 82.6 cm/s AV Peak Gradient 2.7 mmHg LVOT Peak Velocity 53.9 cm/s LVOT Peak Gradient 1.2 mmHg LVOT Velocity Time Integral 11.0 cm LVOT Stroke Volume 37.6 cm??? LVOT Stroke Volume Index 21.9 ml/m??? LVOT Cardiac Index 1875.5 cm???/min???m??? AV Area Cont Eq pk 2.2 cm??? MV Peak Velocity 183.5 cm/s MV Peak Gradient 13.5 mmHg MV Mean Velocity 124.5 cm/s MV Mean Gradient 7.0 mmHg MV Velocity Time Integral 50.6 cm MR Peak Velocity 488.1 cm/s MR Peak Gradient 95.3 mmHg MV E' Velocity 7.9 cm/s TR Peak Velocity 252.5 cm/s TR Peak Gradient 25.5 mmHg Right Ventricular Systolic Press 30.5 mmHg PV Peak Velocity 59.4 cm/s PV Peak Gradient 1.4 mmHg FINDINGS Left Ventricle Normal LV size and wall thickness. Left ventricular ejection fraction is estimated at 50-55 %. Right Ventricle Right ventricular dilatation. RVSP= 30.5mmHg. Right Atrium Right atrial dilatation. RA area= 21.2cm2 Left Atrium Left atrial dilatation. LA volume index= 36.2ml/m2 Mitral Valve Moderate Mitral valve thickening/calcification. Moderate MR. MV peak gradient= 13.5mmHg. MV area by VTI= 0.7cm2 Aortic Valve Trileaflet aortic valve. Moderate AV calcification. No aortic valve stenosis or regurgitation. Tricuspid Valve The tricuspid valve is not well visualized but appears structurally normal. There is Severe TR. Pulmonic Valve Pulmonic valve not well visualized. Mild PI. Pericardium There appears to be a small posterior pericardial effusion best seen in short axis views. Right pleural effusion. Aorta Normal size aortic root. CONCLUSIONS Off axis apical views. Mildly reduced LV systolic function at 50% Significant right atrial enlargement and right ventricular enlargement Severe tricuspid regurgitation Thickened mitral valve with mitral stenosis with at least moderate to severe stenosis Small pericardial effusion Pressure overload of the right ventricle evident Previewed by: Dr. Rajesh Hudson MD (Electronically Signed) Final Date: 11 August 2023 10:05
[2023-08-11] MEDS ORDERED: FUROSEMIDE 10 MG/ML 4 ML VIAL IV STA (10:43)
[2023-08-11] MEDS ORDERED: ALBUTEROL NEBULIZED 7.5 MG, IPRATROPIUM NEBULIZED 0.5 MG, SODIUM CHLORIDE 0.9% NEBULIZ ... INHALATION ONE ×3 (10:44)
--- NOTE | 2023-08-11 16:30 | P.PN ---
Subjective Progress Note Date: 08/11/23 Hospital course: Patient is a very pleasant 58-year-old male with a past medical history of reported previous nicotine dependence and previous alcohol use but denies abuse. He presented to the emergency department with a chief complaint of shortness of breath. Patient reports he was recently diagnosed with bronchitis approximately one month ago and underwent treatment with a Z-Vu. Patient reports he felt better for a short period of time but then noticed persistent exertional shortness of breath with a productive cough. Patient reports this exertional shortness of breath progressively worsened and is now having shortness of breath at rest. Patient states that he went to work today and was bending over and picking things up and became very lightheaded/dizzy felt some mild pressure to his midsternal chest and became very short of breath, he reports his coworkers surrounded him and called EMS. Per ED documentation patient was found by EMS to have a rapid ventricular rate of 180 and received a dose of 6 mg of adenosine followed by a 12 mg dose of adenosine with no improvement in heart rate. Upon arrival to the emergency department patient was found to be in A. fib RVR. Ventricular rate upon arrival 170s with blood pressure 122/102, respiratory rate 20, temp 97.0F, SpO2 99% on room air. EKG was completed showing atrial fibrillation with RVR to 178 bpm. Labs completed and reviewed. CBC showing thrombocytopenia with platelet ount of 136. Coagulation profile showing elevated PT 13.6, INR 1.3, and D-Dimer 4.81. BMP showing mild hyponatremia with sodium 134, Carbon dioxide 16 and glucose of 119. Liver profile Total bili 2.0. Troponins elevated at 0.109. CXR showing cardiomegally with small bilateral pleural effusions and scattered perihilar reticular opacities consistent with CHF exacerbation. Urine drug screen negative. Covid PCR, influenza A, influenza B were all negative. Patient admitted under services of consultation to cardiology. Echocardiogram completed showing biatrial enlargement with preserved EF of 50-55%, severe tricuspid regurgitation and mitral valve prolapse with severe mitral stenosis. Cardiology evaluated and the patient for MARTHA with cardioversion 08/11/23. Cardioversion resulted in successful cardioversion to sinus mechanism. Physical exam: Patient seen and fully evaluated at bedside this morning. He remains in atrial fibrillation with a controlled ventricular rate ranging between 70s and 120s. Cardizem infusion and heparin was stopped and cardiology increasing metoprolol to 50 mg twice daily and placing patient on Eliquis 5 mg twice daily. Vital signs reviewed and stable. General: Nontoxic, no distress and appears stated age. Derm: Skin warm and dry, normal coloration for ethnicity. Head: Atraumatic, normocephalic and symmetric. Eyes: EOMs intact, no lid lag, and anicteric sclera Mouth: no lip lesions, mucus membranes moist Cardiovascular: Regular rate and rhythm with systolic murmur, positive posterior tibial pulses bilaterally, and cap refill < 2 seconds. Lungs: Respirations even, regular, and unlabored on room air. Lungs CTA bilaterally, no rhonchi, no rales, no wheezing, and no accessory muscle usage. Abdominal: soft, nontender to palpation, no guarding, no appreciable organomegaly Ext: ROM intact. No gross muscle atrophy, scant lower extremity, no contractures Neuro: Speech clear, face symmetrical and CN II-XII grossly intact with no noted focal neuro deficits Psych: Alert and oriented to person, place, time, and situation. Appropriate and pleasant affect. Assessment and Plan of Care: Atrophic fibrillation with RVR Acute exacerbation of congestive heart failure, unknown type pending echocardiogram. Likely secondary to RVR Elevated troponins, likely type II NSTEMI resulting from prolonged RVR Exertional shortness of breath secondary to above Biatrial enlargement Severe tricuspid regurgitation Mitral valve prolapse with severe mitral regurgitation -Cardiology following and took patient for cardioversion this morning. -MARTHA with cardioversion completed resulting in successful conversion to sinus mechanism. -Telemetry monitoring -ProBNP 3910. Troponins trended overnight resulting at 0.109, 0.087, and 0.089. TSH was normal findings at 3.390. -Daily weights -Close monitoring of I's and O's. Patient has had a documented output of 1125 mL over the past 24 hours. -Continue metoprolol 50 mg twice a day, Eliquis 5 mg twice a day, and Lasix 20 mg daily -Continued close monitoring of electrolytes while diuresing. Data and imaging reviewed: -Vital signs reviewed. Blood pressure 109/78, heart rate 76, respiratory rate 16, and SpO2 of 99% on room air. -Reviewed MARTHA procedure report, patient underwent MARTHA with cardioversion resulting in successful conversion to sinus mechanism. -Echocardiogram completed showing biatrial enlargement with preserved EF of 50- 55%, severe tricuspid regurgitation and mitral valve prolapse with severe mitral stenosis. CODE STATUS: Full code DVT prophylaxis: Eliquis Anticipated discharge date: Clinical course to determine Anticipated discharge place: home Patient was seen independently by Nurse Practitioner. This document was prepared using [employer] dictation software. Please allow for errors in store lead while rare they do occur. Objective - Vital Signs Vital signs: Vital Signs Temp 97.8 F 08/11/23 08:30 Pulse 75 08/11/23 09:35 Resp 18 08/11/23 08:45 BP 112/80 08/11/23 09:15 Pulse Ox 100 08/11/23 09:15 FiO2 Intake & Output 08/10/23 08/11/23 08/11/23 18:59 06:59 18:59 Intake Total 225 250 Balance 225 250 Intake: IV 250 Oral 225 Other: Voiding Method Toilet Toilet Urinal Urinal - Labs CBC & Chem 7: 08/09/23 10:22 08/10/23 10:34
[2023-08-11] MEDS: ATORVASTATIN 40 MG TAB PO SCH (20:59)
[2023-08-12 08:54] VITALS: PULSE 72; RESP 18; TEMP 97.4
[2023-08-12] MEDS ORDERED: FUROSEMIDE 20 MG TAB PO SCH (09:00)
--- NOTE | 2023-08-12 10:17 | P.DS ---
Providers Date of admission: 08/09/23 13:08 Expected date of discharge: 08/12/23 Attending physician: Kam Francisco MD Consults: 08/09/23 13:08 Consult Physician Urgent Consulting Provider: [facility] Consult Reason/Comments: new onset afib with rvr, nstemi, pulmonary vasc congestion Do you want consulting provider notified?: Already Contacted Primary care physician: Ariel Castro [place] Hospital Course: Discharge Diagnosis: Newly Diagnosed Atrial fibrillation with RVR. Patient underwent MARTHA with successful cardioversion on 08/11/23. Patient remains maintaining sinus mechanism. Materials Handler recommending 7 days low dose IV diuretics with Lasix 20 mg along with continuation of metoprolol 50 mg twice daily and Eliquis 5 mg twice daily. 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 Secondary to RVR Elevated troponins, type II NSTEMI resulting from prolonged RVR Exertional shortness of breath secondary to above Biatrial enlargement Severe tricuspid regurgitation Mitral valve prolapse with severe mitral regurgitation Hospital Course: Patient is a very pleasant 58-year-old male with a past medical history of reported previous nicotine dependence and previous alcohol use but denies abuse. He presented to the emergency department with a chief complaint of shortness of breath. Patient reports he was recently with bronchitis approximately one month ago and underwent treatment with a Z-Vu. Patient reports he felt better for a short period of time but then noticed persistent exertional shortness of breath with a productive cough. Patient reports this exertional shortness of breath progressively worsened and is now having shortness of breath at rest. Patient states that he went to work today and was bending over and picking things up and became very lightheaded/dizzy felt some mild pressure to his midsternal chest and became very short of breath, he reports his coworkers surrounded him and called EMS. Per ED documentation patient was found by EMS to have a rapid ventricular rate of 180 and received a dose of 6 mg of adenosine followed by a 12 mg dose of adenosine with no improvement in heart rate. Upon arrival to the emergency department patient was found to be in A. fib RVR. Ventricular rate upon arrival 170s with blood pressure 122/102, respiratory rate 20, temp 97.0F, SpO2 99% on room air. EKG was completed showing atrial fibrillation with RVR to 178 bpm. Labs completed and reviewed. CBC showing thrombocytopenia with platelet ount of 136. Coagulation profile showing elevated PT 13.6, INR 1.3, and D-Dimer 4.81. BMP showing mild hyponatremia with sodium 134, Carbon dioxide 16 and glucose of 119. Liver profile Total bili 2.0. Troponins elevated at 0.109. CXR showing cardiomegally with small bilateral pleural effusions and scattered perihilar reticular opacities consistent with CHF exacerbation. Urine drug sc reen negative. Covid PCR, influenza A, influenza B were all negative. Patient admitted under services of consultation to cardiology. Echocardiogram completed showing biatrial enlargement with preserved EF of 50-55%, severe tricuspid regurgitation and mitral valve prolapse with severe mitral stenosis. Cardiology evaluated and the patient for MARTHA with cardioversion 08/11/23. Cardioversion resulted in successful cardioversion to sinus mechanism. Patient remains maintaining sinus mechanism and is medically stable for discharge at this time. Materials Handler recommending 7 days low dose IV diuretics with Lasix 20 mg along with continuation of metoprolol 50 mg twice daily and Eliquis 5 mg twice daily. Patient follow-up outpatient with PCP in 1-2 days and with chemical checker in 1 week for further discussion plan of care regarding severe mitral valve prolapse with regurgitation. Physical exam: Vital signs reviewed and stable. General: Nontoxic, no distress and appears stated age. Derm: Skin warm and dry, normal coloration for ethnicity. Head: Atraumatic, normocephalic and symmetric. Eyes: EOMs intact, no lid lag, and anicteric sclera Mouth: no lip lesions, mucus membranes moist Cardiovascular: Regular rate and rhythm with systolic murmur, positive posterior tibial pulses bilaterally, and cap refill < 2 seconds. Lungs: Respirations even, regular, and unlabored on room air. Lungs CTA bilaterally, no rhonchi, no rales, no wheezing, and no accessory muscle usage. Abdominal: soft, nontender to palpation, no guarding, no appreciable o rganomegaly Ext: ROM intact. No gross muscle atrophy, scant lower extremity, no contractures Neuro: Speech clear, face symmetrical and CN II-XII grossly intact with no noted focal neuro deficits Psych: Alert and oriented to person, place, time, and situation. Appropriate and pleasant affect. A total of 35 minutes of time were spent preparing this complex discharge summary. Pt was discharged on 08/12/23 at 10:09 AM Patient was seen independently by Nurse Practitioner. This document was prepared using CSS99 dictation software. Please allow for errors in telehealth nurse while rare they do occur. Patient Condition at Discharge: Stable Plan - Discharge Summary Discharge Rx Participant: No New Discharge Prescriptions: New Metoprolol Tartrate [Lopressor] 50 mg PO BID 30 Days #60 tab Apixaban [Eliquis] 5 mg PO BID 30 Days #60 tab Furosemide [Lasix] 20 mg PO DAILY 7 Days #7 tab Atorvastatin [Lipitor] 40 mg PO HS 30 Days #30 tab Discontinued Ibuprofen [Advil] 400 mg PO Q8HR PRN PRN Reason: Migraine Headache/Pain Discharge Medication List Apixaban [Eliquis] 5 mg PO BID 30 Days #60 tab 08/12/23 [Rx] Atorvastatin [Lipitor] 40 mg PO HS 30 Days #30 tab 08/12/23 [Rx] Furosemide [Lasix] 20 mg PO DAILY 7 Days #7 tab 08/12/23 [Rx] Metoprolol Tartrate [Lopressor] 50 mg PO BID 30 Days #60 tab 08/12/23 [Rx] Follow up Appointment(s)/Referral(s): Lisa Guerrero MD [STAFF PHYSICIAN] - 1 Week (please call and make appointment ) Ariel Costa MD [Primary Care Provider] - 08/15/23 8:00 am Patient Instructions/Handouts: A-fib (Atrial Fibrillation) (DC), Mitral Regu rgitation (DC), Cardioversion (DC) Activity/Diet/Wound Care/Special Instructions: Activity: As tolerated. Take breaks as needed. Diet: Heart healthy and carb consistent diet. Avoid salts, or foods with hidden salts such as canned or boxed foods and frozen dinners. Extra salt makes your heart work harder and traps the fluid in your body for longer. Special Instructions: Take all of your medications as directed and remember to keep all of your doctor's appointments and follow-up as needed. As we discussed, it is very important for you to follow up outpatient with your chemical checker, Dr. Guerrero, for continued close monitoring and management/repair of your mitral valve. Thank you for allowing us to participate in your care, it was truly a pleasure having you for our patient!!! Discharge Disposition: HOME SELF-CARE
[2023-08-12] MEDS: METOPROLOL TARTRATE 50 MG TAB PO SCH (10:20)
[2023-08-12] MEDS: APIXABAN 5 MG TAB PO SCH (10:21)
[2023-08-12 12:32] VITALS: BP 128/89
== END 2023-08-12 14:40 | disposition home or self-care (01) | DRG 280 ==
LOC: EC 10:03 → 3SCARD 13:08
PROVIDERS: ADMIT Student in an Organized Health Care Education/Training Program; ATTEND Student in an Organized Health Care Education/Training Program
PROC: B246ZZ4 Ultrasonography of Right and Left Heart, Transesophageal (ICD-10-PCS; 2023-08-11)
PROC: 5A2204Z Restoration of Cardiac Rhythm, Single (ICD-10-PCS; principal; 2023-08-11 07:15)
DX: I48.0 Paroxysmal atrial fibrillation (principal); I21.A1 Myocardial infarction type 2; I50.31 Acute diastolic (congestive) heart failure; E87.1 Hypo-osmolality and hyponatremia; Z20.822 Contact with and (suspected) exposure to COVID-19; D69.6 Thrombocytopenia, unspecified; F17.210 Nicotine dependence, cigarettes, uncomplicated; I11.0 Hypertensive heart disease with heart failure; R79.1 Abnormal coagulation profile; I08.1 Rheumatic disorders of both mitral and tricuspid valves; F10.20 Alcohol dependence, uncomplicated; Z82.49 Family history of ischemic heart disease and other diseases of the circulatory system; Z79.899 Other long term (current) drug therapy; Z79.01 Long term (current) use of anticoagulants
CPT/HCPCS: 36415; 71046; 71275; 80048; 80053; 80306; 83735; 83880; 84443; 84484; 85025; 85379; 85610; 85730; 87502; 87635; 92960; 93005; 93306; 93312; 93320; 93325; 96365; 96366; 96367; 96368; 96375; 99291

== ENCOUNTER → 2023-08-17 | Outpatient (CLI) | payer OTHER ==
--- NOTE | 2023-08-17 07:42 | US ---
EXAMINATION TYPE: US pelvic limited DATE OF EXAM: 08/17/2023 COMPARISON: NONE CLINICAL INDICATION: Male, 58 years old with history of R63.4 ABNORMAL WEIGHT LOSS; TECHNIQUE: FINDINGS: Prostate noted with calcifications measuring 4.1 x 3.2 x 4.5 cm; bladder volume measures 1 15 ml with bilateral jets noted IMPRESSION: Normal-appearing urinary bladder.
--- NOTE | 2023-08-17 07:49 | US ---
EXAMINATION TYPE: US abdomen complete DATE OF EXAM: 08/17/2023 COMPARISON: NONE CLINICAL INDICATION: Male, 58 years old with history of R63.4 ABNORMAL WEIGHT LOSS; recent hx of pneu monia TECHNIQUE: Multiple sonographic images of the abdomen are obtained. FINDINGS: EXAM MEASUREMENTS: Liver Length: 16.4 cm Gallbladder Wall: 0.71 cm CBD: 0.35 cm Spleen: 8.9 x 2.8 cm Right Kidney: 11.0 x 4.5 x 4.1 cm Left Kidney: 10.3 x 4.2 x 4.2 cm EMBALMER/FUNERAL DIRECTOR NOTES: Pancreas: Tail obscured by overlying bowel gas Liver: wnl Gallbladder: Thickened wall Evidence for sonographic Cantor's sign: no CBD: wnl Spleen: wnl Right Kidney: wnl Left Kidney: wnl Upper IVC: wnl Abd Aorta: wnl Right pleural effusion noted The liver is homogenous. The intrahepatic portion of the IVC and proximal abdominal aorta are within normal limits. There is no evidence of cholelithiasis. Common bile duct is unremarkable. The visu alized portions of the pancreas are homogenous. The spleen is unremarkable. Kidneys are symmetric a nd free of hydronephrosis. No renal lesions are seen. IMPRESSION: Nonspecific Gallbladder wall thickening
== END | disposition home or self-care (01) ==
LOC: RADUSWWP 06:52
PROVIDERS: ATTEND Family Medicine
DX: K82.8 Other specified diseases of gallbladder (principal); R63.4 Abnormal weight loss
CPT/HCPCS: 76700; 76857

== ENCOUNTER 2023-09-20 10:51 | Day surgery (SDC) | payer OTHER ==
[2023-09-19 12:08] VITALS: BMI 20.8
[~2023-09-20 10:51] MED LIST: LACTATED RINGERS 1,000 ML IV SCH
[2023-09-20 11:52] VITALS: TEMP 97
[2023-09-20 12:01] LABS: African American GFR (CKD) 78 (>60 ml/min/1.73 sqM); Anion Gap 12 mmol/L; Blood Urea Nitrogen 20 mg/dL (9-20); Calcium 9.1 mg/dL (8.4-10.2); Carbon Dioxide 19 mmol/L (22-30); Chloride 100 mmol/L (98-107); Glucose 98 mg/dL (74-99); Non-African American GFR(CKD) 68 (>60 ml/min/1.73 sqM); Sodium 131 mmol/L (137-145)
[2023-09-20 12:11] LABS: Potassium 5.3 mmol/L (3.5-5.1)
[2023-09-20] MEDS ORDERED: ATROPINE SULFATE 0.1 MG/ML 10ML SYRINGE ONE (12:30)
[2023-09-20] MEDS ORDERED: PHENYLEPHRINE-0.9% NACL SYG 1,000 MCG/10 ML SYRINGE ONE (12:30)
[2023-09-20] MEDS ORDERED: LIDOCAINE 1% INJ 10MG/ML (20 ML MDV) ONE (12:30)
[2023-09-20] MEDS ORDERED: PROPOFOL 10 MG/ML 20 ML VIAL IV ONE (12:30)
[2023-09-20] MEDS ORDERED: SODIUM CHLORIDE 0.9% 1,000 ML IV SCH (12:45)
--- NOTE | 2023-09-20 12:48 | P.PCN ---
Date of Procedure: 09/20/23 Description of Procedure: Indication: Atrial tachycardia Procedure Description: After explaining the procedure to the patient, it's risk and complications, blood pressure, heart rate and O2 saturation were monitored. The throat was sprayed with Cetacaine. Patient received sedation per anesthesia department. The probe was introduced into the esophagus without difficulty. Images were obtained. Following that, the probe was removed. There was no immediate complication. Findings: Left atrial size is dilated, left atrial appendage is normal. The ventricle systolic function is impaired, ejection fraction 40-45%. The aortic valve revealed fibrocalcific changes with preserved opening. The mitral valve revealed moderate prolapse of the leaflets. Tricuspid valve appears to be normal. No pericardial effusion was noted. Descending thoracic aorta appears to be normal. Doppler: Pulse wave and color Doppler were obtained, and revealed severe eccentric mitral regurgitation with moderate tricuspid regurgitation. There was no shunting across the intra-atrial septum. Conclusion: 1. Dilated left atrium with normal appearance of the left atrial appendage 2. Moderately impaired left ventricle systolic function with global hypokinesis 3. And severe eccentric mitral regurgitation with mitral valve prolapse 4. Moderate tricuspid regurgitation 5. No shunting across the interatrial septum Cardioversion: After obtaining MARTHA and sedated state synchronize biphasic cardioversion using 150 J was performed with roman catholic of sinus mechanism, there was no immediate complications.
[2023-09-20] MEDS ORDERED: IV FLUID CONTINUATION 1,000 ML IV ONE (14:17)
[2023-09-20] MEDS ORDERED: KETOROLAC 15 MG/ML 1 ML VIAL ONE (15:04)
[2023-09-20] MEDS ORDERED: KETOROLAC 15 MG/ML 1 ML VIAL IVP ONE (15:08)
[2023-09-20] MEDS ORDERED: LACTATED RINGERS 1,000 ML IV ONE (15:13)
[2023-09-20 15:14] VITALS: PULSE 63
[2023-09-20 15:42] VITALS: BP 132/92; RESP 16
[2023-09-20] MEDS ORDERED: APIXABAN 5 MG TAB PO SCH (21:00)
[2023-09-20] MEDS ORDERED: ATORVASTATIN 40 MG TAB PO SCH (21:00)
[2023-09-20] MEDS ORDERED: METOPROLOL TARTRATE 50 MG TAB PO SCH (21:00)
[2023-09-21] MEDS ORDERED: FUROSEMIDE 20 MG TAB PO SCH (09:00)
== END 2023-09-20 15:58 | disposition home or self-care (01) ==
LOC: OR 10:51
PROVIDERS: ATTEND Internal Medicine Interventional Cardiology
DX: I08.1 Rheumatic disorders of both mitral and tricuspid valves (principal); I47.19 Other supraventricular tachycardia; I48.91 Unspecified atrial fibrillation; K21.9 Gastro-esophageal reflux disease without esophagitis; E78.5 Hyperlipidemia, unspecified; Z88.0 Allergy status to penicillin; Z79.899 Other long term (current) drug therapy; Z79.01 Long term (current) use of anticoagulants
CPT/HCPCS: 93312; 93320; 93325; 80048; J1885; 92960

== ENCOUNTER 2023-09-29 14:55 | Inpatient (IN) | payer OTHER ==
--- NOTE | 2023-09-29 15:37 | ED ---
General Adult HPI - General Source: patient, RN notes reviewed Mode of arrival: ambulatory Limitations: no limitations <Florencio Hurst - Last Filed: 09/29/23 15:33> <Mychal Gomez - Last Filed: 09/29/23 18:01> - General Chief complaint: Recheck/Abnormal Lab/Rx Stated complaint: abnormal labs Time Seen by Provider: 09/29/23 15:33 - History of Present Illness Initial comments: 58-year-old male presents emergency department medical malpractice paralegal office for evaluation of acute renal failure, liver issues. Patient was recently placed on amiodarone secondary to recurrent nature fibrillation, a flutter. Patient start ed having increasing abdominal swelling, discomfort and leg swelling. Patient was taken off Lasix he had labs drawn yesterday which showed these new findings. Patient denies any chest pain or shortness of breath. (Florencio Hurst) - Related Data Previous Rx's Medication Instructions Recorded Apixaban [Eliquis] 5 mg PO BID 30 Days #60 tab 08/12/23 Atorvastatin [Lipitor] 40 mg PO HS 30 Days #30 tab 08/12/23 Furosemide [Lasix] 20 mg PO DAILY 7 Days #7 tab 08/12/23 Metoprolol Tartrate [Lopressor] 50 mg PO BID 30 Days #60 tab 08/12/23 Amiodarone [Cordarone] 200 mg PO BID #90 tab 09/20/23 Allergies Allergy/AdvReac Type Severity Reaction Status Date / Time Penicillins AdvReac Nausea & Verified 09/29/23 15:15 Vomiting & Diarrhea Review of Systems ROS Other: All systems not noted in ROS Statement are negative. <Florencio Hurst - Last Filed: 09/29/23 15:33> ROS Other: All systems not noted in ROS Statement are negative. <Mychal Gomez - Last Filed: 09/29/23 18:01> ROS Statement: Those systems with pertinent positive or pertinent negative responses have been documented in the HPI. Past Medical History Past Medical History: Atrial Fibrillation, Hearing Disorder / Deafness, Hyperlipidemia Additional Past Medical History / Comment(s): Trouble hearing on occasion. History of Any Multi-Drug Resistant Organisms: None Reported Past Surgical History: No Surgical Hx Reported Additional Past Surgical History / Comment(s): Cardioversion/MARTHA. Past Anesthesia/Blood Transfusion Reactions: No Reported Reaction Past Psychological History: No Psychological Hx Reported Smoking Status: Former smoker Past Alcohol Use History: Daily Past Drug Use History: None Reported - Past Family History Mother Family Medical History: No Reported History <Florencio Hurst - Last Filed: 09/29/23 15:33> General Exam Limitations: no limitations <Florencio Hurst - Last Filed: 09/29/23 15:33> General appearance: alert, in no apparent distress Head exam: Present: atraumatic, normocephalic Eye exam: Present: normal appearance, PERRL ENT exam: Present: normal exam Neck exam: Present: normal inspection. Absent: tenderness, meningismus Respiratory exam: Present: normal lung sounds bilaterally. Absent: respiratory distress, wheezes Cardiovascular Exam: Present: regular rate, normal rhythm GI/Abdominal exam: Present: distended. Absent: tenderness Extremities exam: Present: pedal edema Neurological exam: Present: alert, oriented X3 Psychiatric exam: Present: normal affect, normal mood Skin exam: Present: warm, dry, intact <Mychal Gomez - Last Filed: 09/29/23 18:01> - General Exam Comments Initial Comments: Visual Physical Exam Vital signs reviewed General: Well-appearing, nontoxic, no acute distress. Head: Normocephalic, atraumatic Eyes: PERRLA, EOMI ENT: Airway patent Chest: Nonlabored breathing Skin: No visual rash, normal skin tone Neuro: Alert and oriented 3 Musculoskeletal: No gross abnormalities (Florencio Hurst) Course Vital Signs 09/29/23 15:12 Temperature 97.9 F Pulse Rate 59 L Respiratory 16 Rate Blood Pressure 114/70 O2 Sat by Pulse 99 Oximetry Medical Decision Making <Florencio Hurst - Last Filed: 09/29/23 15:33> - Lab Data Result diagrams: 09/29/23 15:28 09/29/23 15:28 <Mychal Gomez - Last Filed: 09/29/23 18:01> - Medical Decision Making I completed the quick note portion of this chart signed Florencio Ambrosio PA-C) Was pt. sent in by a medical professional or institution (, PA, TUBE BUILDER, urgent care, hospital, or custodial...) When possible be specific @ -No Did you speak to anyone other than the patient for history (EMS, parent, family, police, friend...)? What history was obtained from this source @ -No Did you review nursing and triage notes (agree or disagree)? Why? @ -I reviewed and agree with nursing and triage notes Were old charts reviewed (outside hosp., previous admission, EMS record, old EKG, old radiological studies, urgent care reports/EKG's, custodial records)? Report findings @ -No old charts were reviewed Differential Diagnosis (chest pain, altered mental status, abdominal pain women, abdominal pain men, vaginal bleeding, weakness, fever, dyspnea, syncope, headache, dizziness, GI bleed, back pain, seizure, CVA, palpatations, mental health, musculoskeletal)? @ -not applicable EKG interpreted by me (3pts min.). @ -Sinus bradycardia rate of 56, MI interval 176, QRS duration 91, QTC [address] segment elevation. X-rays interpreted by me (1pt min.). @ -Cardiomegaly trace bilateral effusion on chest x-ray, no pneumothorax CT interpreted by me (1pt min.). @ -None done U/S interpreted by me (1pt. min.). @ -None done What testing was considered but not performed or refused? (CT, X-rays, U/S, labs)? Why? @ -None What meds were considered but not given or refused? Why? @ -None Did you discuss the management of the patient with other professionals (professionals i.e. , PA, TUBE BUILDER, lab, RT, psych nurse, social studies teacher, immigration lawyer, teacher, aircraft electronics technical officer, case management manager)? Give summary @ -Sound physician group Was smoking cessation discussed for >3mins.? @ -No Was critical care preformed (if so, how long)? @ -No Were there social determinants of health that impacted care today? How? (Homelessness, low income, unemployed, alcoholism, drug addiction, transportation, low edu. Level, literacy, decrease access to med. care, [place] [facility], rehab)? @ -No Was there de-escalation of care discussed even if they declined (Discuss DNR or withdrawal of care, Hospice)? DNR status @ -No What co-morbidities impacted this encounter? (DM, HTN, Smoking, COPD, CAD, Cancer, CVA, ARF, Chemo, Hep., AIDS, mental health diagnosis, sleep apnea, morb id obesity)? @Atrial fibrillation, prior alcohol use Was patient admitted / discharged? Hospital course, mention meds given and route, prescriptions, significant lab abnormalities, going to OR and other pertinent info. @ -58-year-old male presenting with abnormal outpatient labs. Labs are repeated. He does have elevated BUN and creatinine which is new for this patient. He also has mild transaminitis and hyperbilirubinemia at 2.2. He st ates he has not had a drink in the past 6 weeks. He's had several medication changes as an outpatient and has had 2 recent cardioversions. His x-ray shows signs of fluid overload. He will be admitted for repeat echo, consultation with both cardiology and nephrology. Undiagnosed new problem with uncertain prognosis? @ -No Drug Therapy requiring intensive monitoring for toxicity (Heparin, Nitro, Insulin, Cardizem)? @ -No Were any procedures done? @ -No Diagnosis/symptom? @ -Acute kidney injury, CHF Acute, or Chronic, or Acute on Chronic? @Acute Uncomplicated (without systemic symptoms) or Complicated (systemic symptoms)? @ -default Side effects of treatment? @ -No Exacerbation, Progression, or Severe Exacerbation? @ -No Poses a threat to life or bodily function? How? (Chest pain, [place], [place], pneumonia, PE, COPD, DKA, ARF, appy, cholecystitis, CVA, Diverticulitis, Homicidal, Suicidal, threat to staff... and all critical care pts) @ -S, worsening renal function (Mychal Gomez) - Lab Data Lab Results 09/29/23 09/29/23 09/29/23 Range/Units 15:28 15:28 15:28 WBC 7.0 (3.8-10.6) k/uL RBC 4.86 (4.30-5.90) m/uL Hgb 16.2 (13.0-17.5) gm/dL Hct 51.1 (39.0-53.0) % MCV 105.3 H (80.0-100.0) fL MCH 33.3 (25.0-35.0) pg MCHC 31.6 (31.0-37.0) g/dL RDW 15.9 H (11.5-15.5) % Plt Count 61 L D (150-450) k/uL MPV 9.9 Neutrophils % 62 % Lymphocytes % 22 % Monocytes % 10 % Eosinophils % 2 % Basophils % 0 % Neutrophils # 4.4 (1.3-7.7) k/uL Lymphocytes # 1.5 (1.0-4.8) k/uL Monocytes # 0.7 (0-1.0) k/uL Eosinophils # 0.2 (0-0.7) k/uL Basophils # 0.0 (0-0.2) k/uL Manual Slide Review Performed Hypochromasia Slight Poikilocytosis Slight Macrocytosis Moderate PT 14.3 H (10.0-12.5) sec INR 1.4 H (<1.2) APTT 27.6 (22.0-30.0) sec Sodium 136 L (137-145) mmol/L Potassium 3.9 (3.5-5.1) mmol/L Chloride 101 (98-107) mmol/L Carbon Dioxide 25 (22-30) mmol/L Anion Gap 10 mmol/L BUN 31 H (9-20) mg/dL Creatinine 2.97 H (0.66-1.25) mg/dL Est GFR (CKD-EPI)AfAm 26 (>60 ml/min/1.73 sqM) Est GFR (CKD-EPI)NonAf 22 (>60 ml/min/1.73 sqM) Glucose 74 (74-99) mg/dL Plasma Lactic Acid German (0.7-2.0) mmol/L Calcium 8.2 L (8.4-10.2) mg/dL Magnesium 1.7 (1.6-2.3) mg/dL Total Bilirubin 2.2 H (0.2-1.3) mg/dL AST 117 H (17-59) U/L ALT 252 H (4-49) U/L Alkaline Phosphatase 131 H (38-126) U/L Troponin I (0.000-0.034) ng/mL NT-Pro-B Natriuret Pep 3800 pg/mL Total Protein 6.1 L (6.3-8.2) g/dL Albumin 3.2 L (3.5-5.0) g/dL Lipase 604 H (23-300) U/L 09/29/23 09/29/23 Range/Units 15:28 15:28 WBC (3.8-10.6) k/uL RBC (4.30-5.90) m/uL Hgb (13.0-17.5) gm/dL Hct (39.0-53.0) % MCV (80.0-100.0) fL MCH (25.0-35.0) pg MCHC (31.0-37.0) g/dL RDW (11.5-15.5) % Plt Count (150-450) k/uL MPV Neutrophils % % Lymphocytes % % Monocytes % % Eosinophils % % Basophils % % Neutrophils # (1.3-7.7) k/uL Lymphocytes # (1.0-4.8) k/uL Monocytes # (0-1.0) k/uL Eosinophils # (0-0.7) k/uL Basophils # (0-0.2) k/uL Manual Slide Review Hypochromasia Poikilocytosis Macrocytosis PT (10.0-12.5) sec INR (<1.2) APTT (22.0-30.0) sec Sodium (137-145) mmol/L Potassium (3.5-5.1) mmol/L Chloride (98-107) mmol/L Carbon Dioxide (22-30) mmol/L Anion Gap mmol/L BUN (9-20) mg/dL Creatinine (0.66-1.25) mg/dL Est GFR (CKD-EPI)AfAm (>60 ml/min/1.73 sqM) Est GFR (CKD-EPI)NonAf (>60 ml/min/1.73 sqM) Glucose (74-99) mg/dL Plasma Lactic Acid German 1.2 (0.7-2.0) mmol/L Calcium (8.4-10.2) mg/dL Magnesium (1.6-2.3) mg/dL Total Bilirubin (0.2-1.3) mg/dL AST (17-59) U/L ALT (4-49) U/L Alkaline Phosphatase (38-126) U/L Troponin I 0.029 (0.000-0.034) ng/mL NT-Pro-B Natriuret Pep pg/mL Total Protein (6.3-8.2) g/dL Albumin (3.5-5.0) g/dL Lipase (23-300) U/L Disposition <Florencio Hurst - Last Filed: 09/29/23 15:33> Is patient prescribed a controlled substance at d/c from ED?: No Time of Disposition: 18:01 <Mychal Gomez - Last Filed: 09/29/23 18:01> Clinical Impression: AKHIL (acute kidney injury), CHF (congestive heart failure) Disposition: ADMITTED IP TO THIS HOSP Condition: Stable Referrals: Dmitry Olson, JESUS [Family Provider] - 1-2 days
[2023-09-29 16:14] LABS: Basophils % (A) 0 %; Eosinophils # (A) 0.2 k/uL (0-0.7); Eosinophils % (A) 2 %; HCT 51.1 % (39.0-53.0); HGB 16.2 gm/dL (13.0-17.5); Hypochromasia Slight; Lymphocytes # (A) 1.5 k/uL (1.0-4.8); Lymphocytes % (A) 22 %; MCH 33.3 pg (25.0-35.0); MCHC 31.6 g/dL (31.0-37.0); MCV 105.3 fL (80.0-100.0); Macrocytosis Moderate; Mean Platelet Volume 9.9; Monocytes # (A) 0.7 k/uL (0-1.0); Monocytes % (A) 10 %; Neutrophils # (A) 4.4 k/uL (1.3-7.7); Neutrophils % (A) 62 %; Poikilocytosis Slight; RBC 4.86 m/uL (4.30-5.90); RDW 15.9 % (11.5-15.5)
[2023-09-29 16:21] LABS: ALT 252 U/L (4-49); African American GFR (CKD) 26 (>60 ml/min/1.73 sqM); Anion Gap 10 mmol/L; Blood Urea Nitrogen 31 mg/dL (9-20); Calcium 8.2 mg/dL (8.4-10.2); Carbon Dioxide 25 mmol/L (22-30); Chloride 101 mmol/L (98-107); Glucose 74 mg/dL (74-99); Lipase 604 U/L (23-300); Non-African American GFR(CKD) 22 (>60 ml/min/1.73 sqM); Sodium 136 mmol/L (137-145); Total Bilirubin 2.2 mg/dL (0.2-1.3)
[2023-09-29 16:29] LABS: NT-Pro-B-Type Natriuretic Pept 3800 pg/mL
[2023-09-29 16:35] LABS: AST 117 U/L (17-59); Alkaline Phosphatase 131 U/L (38-126); Potassium 3.9 mmol/L (3.5-5.1)
[2023-09-29 16:36] LABS: Albumin 3.2 g/dL (3.5-5.0); Magnesium 1.7 mg/dL (1.6-2.3); Total Protein 6.1 g/dL (6.3-8.2)
[2023-09-29 16:37] LABS: INR 1.4 (<1.2); Partial Thromboplastin Time 27.6 sec (22.0-30.0); Prothrombin Time 14.3 sec (10.0-12.5)
[2023-09-29 16:51] LABS: Platelet Count 61 k/uL (150-450)
--- NOTE | 2023-09-29 17:19 | XR ---
EXAMINATION: XR chest 2V: 09/29/2023 5:08 PM CLINICAL INDICATION: cough TECHNIQUE: Departmental protocol COMPARISON: 08/09/2023 FINDINGS: There is mild interval progression of the right lower lung zone ill-defined consolidation seen on the prior study. The left perihilar findings seen on the prior study are stable. Small bilateral pleural effusions noted. The cardiac silhouette is mild-moderately enlarged, stable. The remainder of the mediastinal silhouet te is unremarkable. The skeletal structures and soft tissues are negative for acute findings. IMPRESSION: Mild interval progression of the pulmonary findings.
[2023-09-29] MEDS ORDERED: NALOXONE 0.4 MG/ML 1 ML VIAL IV PRN (17:53)
[2023-09-29] MEDS ORDERED: FUROSEMIDE 10 MG/ML 4 ML VIAL IV STA (17:58)
--- NOTE | 2023-09-29 22:24 | P.HPIM ---
History of Present Illness H&P Date: 09/29/23 Chief Complaint: swelling 58-year-old male with A. 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 Patient noted increase abdominal swelling scrotum swelling and leg edema bilaterally when he was discharged from the hospital he was on the low dose Lasix for about a week for diastolic CHF exacerbation since he ran out of Lasix he started noticing increased edema he denies any shortness of breath denies any chest pain denies any fevers chills denies any upper respiratory infection symptoms. Patient reports being compliant with the medications she is on Eliquis and metoprolol and cholesterol-lowering pill. He does admit to history of alcoholism however he claims that he quit drinking since his last hospital stay on August 09. He does admit to tobacco smoking and weight loss denies any hemoptysis denies any GI bleeding During his last hospital stay he also had elevated bilirubin abdominal ultrasound showed no gallbladder abnormalities Physical admit to tobacco smoking denies any drinking for the past 6 weeks denies any illicit drugs review of systems Pertinent positives as noted in HPI. All other systems were reviewed and are negative on exam Constitutional: No acute distress, conversant, pleasant Eyes: Anicteric sclerae, moist conjunctiva, Pupils equal round reactive to light ENMT: NC/AT Oropharynx clear, no erythema, or exudates Neck: Supple, no masses, or JVD No carotid bruits No thyromegaly Lungs: Decreased breath sounds at lung bases no wheezing no rhonchi Clear to percussion Normal respiratory effort, no accessory muscle use Cardiovascular: Heart regular in rate and rhythm, No murmurs, gallops, or rubs +2 peripheral bilateral leg edema Abdominal: Soft, dependent edema over the flanks and scrotum Nontender, no guarding, rebound or rigidity Abdomen moving with respiration Normoactive bowel sounds No hepatomegaly, No splenomegaly No palpable mass No abdominal wall hernia noted Extremities: No digital cyanosis No clubbing Pedal pulses intact and symmetrical Radial pulses intact and symmetrical No calf tenderness Psychiatric: Alert and oriented to person, place and time Appropriate affect fair judgement Neuro Muscles Strength 5/5 in all 4 extremities Sensation to light touch grossly present throughout Cranial nerves II-XII grossly intact Lymphatics: no palpable cervical or supraclavicular lymph nodes Past Medical History Past Medical History: Atrial Fibrillation, Hearing Disorder / Deafness, Hyperlipidemia Additional Past Medical History / Comment(s): Trouble hearing on occasion. History of Any Multi-Drug Resistant Organisms: None Reported Past Surgical History: No Surgical Hx Reported Additional Past Surgical History / Comment(s): Cardioversion/MARTHA. Past Anesthesia/Blood Transfusion Reactions: No Reported Reaction Past Psychological History: No Psychological Hx Reported Smoking Status: Former smoker Past Alcohol Use History: None Reported Additional Past Alcohol Use History / Comment(s): Normally drinks a few beers daily, but has had no alcohol in one month. Past Drug Use History: None Reported - Past Family History Mother Family Medical History: No Reported History Medications and Allergies Home Medications Medication Instructions Recorded Confirmed Type Apixaban [Eliquis] 5 mg PO BID 30 Days #60 tab 08/12/23 09/29/23 Rx Atorvastatin [Lipitor] 40 mg PO HS 30 Days #30 tab 08/12/23 09/29/23 Rx Metoprolol Tartrate [Lopressor] 50 mg PO BID 30 Days #60 tab 08/12/23 09/29/23 Rx Furosemide [Lasix] 40 mg PO DAILY 09/29/23 09/29/23 History Allergies Allergy/AdvReac Type Severity Reaction Status Date / Time Penicillins AdvReac Nausea & Verified 09/29/23 19:21 Vomiting & Diarrhea Physical Exam Vitals: Vital Signs Temp Pulse Pulse Resp BP BP Pulse Ox 09/29/23 20:57 64 18 155/92 99 09/29/23 20:00 64 17 09/29/23 18:06 59 L 18 142/81 99 09/29/23 15:12 97.9 F 59 L 16 114/70 99 Intake and Output 09/29/23 09/29/23 09/29/23 06:59 14:59 22:59 Intake Total 0 Balance 0 Intake: Oral 0 Other: Voiding Method Toilet Weight 65.771 kg Results CBC & Chem 7: 09/29/23 15:28 09/29/23 15:28 Labs: Abnormal Lab Results - Last 24 Hours (Table) 09/29/23 09/29/23 09/29/23 Range/Units 15:28 15:28 15:28 MCV 105.3 H (80.0-100.0) fL RDW 15.9 H (11.5-15.5) % Plt Count 61 L D (150-450) k/uL PT 14.3 H (10.0-12.5) sec INR 1.4 H (<1.2) Sodium 136 L (137-145) mmol/L BUN 31 H (9-20) mg/dL Creatinine 2.97 H (0.66-1.25) mg/dL Calcium 8.2 L (8.4-10.2) mg/dL Total Bilirubin 2.2 H (0.2-1.3) mg/dL AST 117 H (17-59) U/L ALT 252 H (4-49) U/L Alkaline Phosphatase 131 H (38-126) U/L Total Protein 6.1 L (6.3-8.2) g/dL Albumin 3.2 L (3.5-5.0) g/dL Lipase 604 H (23-300) U/L Thrombosis Risk Factor Assmnt - Choose All That Apply Any of the Below Risk Factors Present?: Yes Each Factor Represents 1 point: Age 41-60 years, Swollen legs (current) Other Risk Factors: No Other congenital or acquired thrombophilia - If yes, enter type in comment: No Thrombosis Risk Factor Assessment Total Risk Factor Score: 2 Thrombosis Risk Factor Assessment Level: Low Risk Assessment and Plan Assessment: 58-year-old male with diastolic CHF, valvular heart disease, A. 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 fib status post cardioversion 6 weeks ago Daily weights Low-sodium diet Fluid restriction of 2 L Cardiology consult IV Lasix 40 mg IV push twice a day Supplemental oxygen as needed Echocardiogram done last month showing diastolic CHF, tricuspid and mitral valve regurg Chest x-ray no acute pathology EKG no acute ST changes History of A. fib status post cardioversion 6 weeks ago Resume Eliquis Continue beta zulema metoprolol 50 mg twice a day Cardiac monitoring Acute cardiorenal syndrome Transaminitis Follow-up renal and liver function Sodium 136 potassium 3.9 BUN 31 creatinine 2.9 Bilirubin 2.2 AST 2016 ALT 254 Alk phos 131 Troponin negative BMP 3800 Abdominal ultrasound done during last admission July 2023 no acute gallbladder disease Chest x-ray did show mild interval progression of the right lower lung zone ill- defined consolidation which was seen on prior study. However during last admission about a month ago CTA of the chest was performed showed no PE, and there was no findings related to any consolidation or lung masses Patient counseled to quit smoking nicotine replacement therapy will be offered if needed Full code DVT prophylaxis on Eliquis for A. fib
[2023-09-30] MEDS: METOPROLOL TARTRATE 50 MG TAB PO SCH ×3 (00:13→22:03)
[2023-09-30] MEDS: APIXABAN 5 MG TAB PO SCH ×4 (00:13→22:03)
[2023-09-30] MEDS ORDERED: FUROSEMIDE 10 MG/ML 4 ML VIAL IV SCH (09:00)
[2023-09-30 09:36] LABS: ALT 197 U/L (4-49); AST 74 U/L (17-59); African American GFR (CKD) 28 (>60 ml/min/1.73 sqM); Albumin 2.7 g/dL (3.5-5.0); Alkaline Phosphatase 152 U/L (38-126); Anion Gap 8 mmol/L; Blood Urea Nitrogen 30 mg/dL (9-20); Calcium 8.1 mg/dL (8.4-10.2); Carbon Dioxide 29 mmol/L (22-30); Chloride 100 mmol/L (98-107); Glucose 90 mg/dL (74-99); Magnesium 1.5 mg/dL (1.6-2.3); Non-African American GFR(CKD) 24 (>60 ml/min/1.73 sqM); Potassium 3.1 mmol/L (3.5-5.1); Sodium 137 mmol/L (137-145); Total Bilirubin 2.4 mg/dL (0.2-1.3); Total Protein 5.2 g/dL (6.3-8.2)
[2023-09-30] MEDS: FUROSEMIDE 10 MG/ML 4 ML VIAL IV SCH ×2 (09:41→22:04)
[2023-09-30 10:40] LABS: HCT 48.3 % (39.0-53.0); HGB 15.5 gm/dL (13.0-17.5); Hypochromasia Marked; MCH 34.3 pg (25.0-35.0); MCV 107.2 fL (80.0-100.0); Macrocytosis Marked; Mean Platelet Volume 9.8; RBC 4.51 m/uL (4.30-5.90); RDW 15.7 % (11.5-15.5); WBC 7.6 k/uL (3.8-10.6)
[2023-09-30 10:55] LABS: Platelet Count 58 k/uL (150-450)
[2023-09-30] MEDS ORDERED: Magnesium Replacement Protocol 1 EACH MISC MISCELLANE PRN (11:20)
[2023-09-30] MEDS ORDERED: Potassium Replacement Protocol 1 EACH MISC MISCELLANE PRN (11:21)
--- NOTE | 2023-09-30 11:41 | P.PN ---
Subjective Progress Note Date: 09/30/23 58-year-old male with A. fib status post cardioversion 08/11/2023 on Eliquis, dyslipidemia. 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 Patient noted increase abdominal swelling scrotum swelling and leg edema bilaterally. When he was discharged from the hospital he was on the low dose Lasix for about a week for diastolic CHF exacerbation since he ran out of Lasix he started noticing increased edema. He does admit to history of alcoholism however he claims that he quit drinking since his last hospital stay on August 09. He does admit to tobacco smoking. During his last hospital stay he also had elevated bilirubin abdominal ultrasound showed no gallbladder abnormalities. In the ED he underwent extensive evaluation Vital signs stable. CBC MCV 105.3, Plt 61 INR 1.4. CMP Na 136, BUN 31, Cr 2.97, T. Bili 2.2, AST 117, ALT 252, alk phos 131, alb 3.2. Troponin 0.029. BNP 3800. Lipase 604. EKG sinus bradycardia with Q waves. CXR small bilateral pleural effusions with increased right lower lung consolida tion. He was admitted for further management and workup. Started on Lasix 40 IV BID. Cardiology and Nephrology consulted. 09/30 Patient was seen and examined. CMP pending. Renal and bladder US ordered. Liver US ordered. General: non toxic, no distress, appears at stated age Derm: warm, dry Head: atraumatic, normocephalic, symmetric Eyes: EOMI, no lid lag, anicteric sclera Mouth: no lip lesion, mucus membranes moist Cardiovascular: S1S2 reg, no murmur, positive posterior tibial pulse bilateral, Lungs: CTA bilateral, no rhonchi, no rales , no accessory muscle use Abdominal: soft, nontender to palpation, no guarding, no appreciable organomegaly Ext: no gross muscle atrophy, no edema, no contractures Neuro: no focal neuro deficits Psych: Alert, oriented, appropriate affect Based on my assessment of this patient, this patient meets a high complexity level of care. Patient has a history of diastolic CHF with severe exacerbation or progression of disease which poses a threat to life or bodily function. Also with worsening renal and liver function. Acute on chronic diastolic CHF exacerbation: Lasix 40 mg IV BID. Echo ordered. Strict intake and outtake. Daily weights. Cardiology consulted. Acute kidney injury concerns for cardiorenal syndrome: Renal and bladder US. Avoid nephrotoxic meds. Nephrology consult. Obstructive transaminitis: Liver and GB US. Possible EtOH. Hold statin. Trend. Supratherapeutic INR: Likely related to liver dysfunction. Thrombocytopenia: Likely related to EtOH abuse. Monitor. Avoid heparin. Macrocytosis: Likely related to EtOH abuse. CODE STATUS: FULL CODE DVT Prophylaxis: SCD GI Prophylaxis: Designated medical POA if patient is not able to make medical decisions for themselves: I have reviewed the following healthcare management consultant notes: Cardiology note. Nephrology note. I have reviewed the results of the following tests: CBC, CMP. I have ordered the following tests: Liver, Renal Bladder US. I have discussed the care of this patient with the following independent historian: I have independently interpreted the following test below: I have discussed the management of this patient with the following physician: This patient has a high risk of morbidity due to the following reasons: This patient meets a high level of care for the following reasons: Patient requires IV lasix which requires intensive monitoring for renal toxicity. Objective - Vital Signs Vital signs: Vital Signs Temp 97.5 F L 09/30/23 04:00 Pulse 66 09/30/23 04:00 Resp 17 09/30/23 04:00 BP 144/89 09/30/23 04:00 Pulse Ox 98 09/30/23 04:00 FiO2 Intake & Output 09/29/23 09/30/23 09/30/23 18:59 06:59 18:59 Intake Total 0 Balance 0 Weight 65.771 kg 65.771 kg Intake: Oral 0 Other: Voiding Method Toilet # Voids 1 - Labs CBC & Chem 7: 09/30/23 08:05 09/30/23 08:05 Labs: Abnormal Lab Results - Last 24 Hours (Table) 09/29/23 09/29/23 09/29/23 Range/Units 15:28 15:28 15:28 MCV 105.3 H (80.0-100.0) fL RDW 15.9 H (11.5-15.5) % Plt Count 61 L D (150-450) k/uL PT 14.3 H (10.0-12.5) sec INR 1.4 H (<1.2) Sodium 136 L (137-145) mmol/L BUN 31 H (9-20) mg/dL Creatinine 2.97 H (0.66-1.25) mg/dL Calcium 8.2 L (8.4-10.2) mg/dL Total Bilirubin 2.2 H (0.2-1.3) mg/dL AST 117 H (17-59) U/L ALT 252 H (4-49) U/L Alkaline Phosphatase 131 H (38-126) U/L Total Protein 6.1 L (6.3-8.2) g/dL Albumin 3.2 L (3.5-5.0) g/dL Lipase 604 H (23-300) U/L
--- NOTE | 2023-09-30 11:53 | P.NPCON ---
History of Present Illness - Reason for Consult acute renal failure - History of Present Illness Reason for consultation: Acute kidney injury History of present illness: Patient is a 58-year-old male seen in renal consultation for acute kidney injury. Patient's creatinine dated 08/10/2023 was 0.93. It was up to 3.3 on 09/29/2023 and is down to 2.8 today. Patient came to the hospital due to abnormal labs. Patient has history of A. fib and has undergone MARTHA with cardioversion in July 2023 and again in August 2023. Patient has a history of systolic CHF with ejection fraction of 50% with severe tricuspid regurgitation, mild to moderate mitral stenosis. Patient states edema was much worse when he came in and is improving with diuresis. He is currently on IV Lasix 40 mg twice daily. He denies history of diabetes. Denies use of nonsteroidals. Denies history of coronary artery disease. No vomiting or diarrhea. Oral intake fair. No fever or chills. Vital signs are stable. General: No acute distress. HEENT: Head exam is unremarkable. LUNGS: No audible rhonchi or wheezes. HEART: Rate and Rhythm are regular. ABDOMEN: Abdominal exam reveals normal nontender. EXTREMITITES: 2+ edema. Past Medical History Past Medical History: Atrial Fibrillation, Hearing Disorder / Deafness, Hyperlipidemia Additional Past Medical History / Comment(s): Trouble hearing on occasion. History of Any Multi-Drug Resistant Organisms: None Reported Past Surgical History: No Surgical Hx Reported Additional Past Surgical History / Comment(s): Cardioversion/MARTHA. Past Anesthesia/Blood Transfusion Reactions: No Reported Reaction Past Psychological History: No Psychological Hx Reported Smoking Status: Former smoker Past Alcohol Use History: None Reported Additional Past Alcohol Use History / Comment(s): Normally drinks a few beers da clar[place], but has had no alcohol in one month. Past Drug Use History: None Reported - Past Family History Mother Family Medical History: No Reported History Medications and Allergies Home Medications Medication Instructions Recorded Confirmed Type Apixaban [Eliquis] 5 mg PO BID 30 Days #60 tab 08/12/23 09/29/23 Rx Atorvastatin [Lipitor] 40 mg PO HS 30 Days #30 tab 08/12/23 09/29/23 Rx Metoprolol Tartrate [Lopressor] 50 mg PO BID 30 Days #60 tab 08/12/23 09/29/23 Rx Furosemide [Lasix] 40 mg PO DAILY 09/29/23 09/29/23 History Allergies Allergy/AdvReac Type Severity Reaction Status Date / Time Penicillins AdvReac Nausea & Verified 09/29/23 19:21 Vomiting & Diarrhea Physical Exam Vitals: Vital Signs Temp Pulse Pulse Resp BP BP Pulse Ox 09/30/23 08:00 97.9 F 74 18 130/77 100 09/30/23 04:00 97.5 F L 66 17 144/89 98 09/30/23 02:00 68 17 09/30/23 00:00 97.7 F 68 17 143/82 99 09/29/23 20:57 64 18 155/92 99 09/29/23 20:00 64 17 09/29/23 18:06 59 L 18 142/81 99 09/29/23 15:12 97.9 F 59 L 16 114/70 99 Intake and Output 09/29/23 09/30/23 09/30/23 22:59 06:59 14:59 Intake Total 0 360 Balance 0 360 Intake: Oral 0 360 Other: Voiding Method Toilet Toilet Toilet # Voids 4 1 Weight 65.771 kg Results - Lab Results Most recent lab results Calcium 8.1 mg/dL (8.4-10.2) L 09/30/23 08:05 Magnesium 1.5 mg/dL (1.6-2.3) L 09/30/23 08:05 09/30/23 08:05 09/30/23 08:05 Assessment and Plan Plan: Assessment: 1. Acute kidney injury secondary to ATN secondary to cardiorenal syndrome. Creatinine 3.3 on admission and is 2.8 today. Creatinine near and July 2023. 2. Acute on chronic systolic CHF with ejection fraction of 50% with severe tricuspid regurgitation and moderate to severe mitral stenosis. 3. Volume overload. 4. A. fib status post MARTHA with cardioversion in July and August 2023. 5. Hypokalemia from diuresis and hypomagnesemia. 6. Hypomagnesemia from diuresis. 7. Elevated liver enzymes. Possibly from amiodarone. Defer management to primary team. Plan: Maintain IV Lasix 40 mg twice daily. Low-salt diet and 1500 mL fluid restriction. Add SGLT2i if GFR continues to improve. Replace potassium and magnesium. Check UA. Check renal ultrasound. Continue to monitor renal function and urine output. Follow-up echocardiogram. Thank you for the consultation. I will continue to follow the patient with you during his hospital stay.
--- NOTE | 2023-09-30 12:21 | CA ---
Transthoracic Echo Report Name: Zana Roblero Age: 58 Gender: M : 1965 Exam Date: 09/30/2023 10:10 Exam Location: [facility] Ht (in): 69 Wt (lb): 145 Ordering Physician: Mychal Gomez MD Attending/Referring Phys: [id number], [employer] Azam Du Procedure CPT: Indications: chf Cardiac Hx: Technical Quality: Fair Contrast 1: Total Dose (mL): Contrast 2: Total Dose (mL): MEASUREMENTS (Male / Female) Normal Values 2D ECHO LV Diastolic Diameter PLAX 3.7 cm 4.2 - 5.9 / 3.9 - 5.3 cm LV Systolic Diameter PLAX 2.4 cm IVS Diastolic Thickness 0.9 cm 0.6 - 1.0 / 0.6 - 0.9 cm LVPW Diastolic Thickness 1.1 cm 0.6 - 1.0 / 0.6 - 0.9 cm LV Relative Wall Thickness 0.5 RV Internal Dim ED PLAX 2.8 cm LV Diastolic Volume MOD 4C 39.9 cm??? LV Diastolic Length 4C 6.5 cm FINDINGS Left Ventricle Normal LV size and wall thickness. Left ventricular ejection fraction is estimated at 55-60 %. Right Ventricle Right Atrium Left Atrium Mitral Valve Aortic Valve Tricuspid Valve Pulmonic Valve Pericardium Small posterior pericardial effusion noted. Aorta CONCLUSIONS Concentric left ventricular hypertrophy with normal LV systolic function Trace pericardial effusion Previewed by: Dr. Ezequiel Laurent MD (Electronically Signed) Final Date: 30 September 2023 12:20
[2023-09-30] MEDS: POTASSIUM CHLORIDE ER 20 MEQ TAB.ER PO SCH ×3 (12:22→15:09)
[2023-09-30] MEDS: MAGNESIUM SULFATE-D5W PMX 1 GM in DEXTROSE/WATER 1 100ML.BAG IVPB SCH ×2 (12:22→15:05)
--- NOTE | 2023-09-30 13:30 | P.CRDCN ---
History of Present Illness History of present illness: HISTORY OF PRESENT ILLNESS: This is a 58-year-old male with a past medical history significant for paroxysmal atrial fibrillation, mitral valve regurgitation, hyperlipidemia, former nicotine dependence, and nonischemic cardiomyopathy. Patient follows in the office with Dr. Guerrero. We have been asked to see the patient in consultation for congestive heart failure. Patient recently underwent MARTHA and cardioversion on 09/20/2023. Patient was seen in the office on 09/28/2023 for a follow-up visit. At that time his amiodarone was discontinued and the patient was started on Lasix 40 mg daily. He also had outpatient labs drawn. The patient states he was notified yesterday via phone that his labs were abnormal and he was instructed to come to the emergency room for further evaluation. The patient was examined this morning at the bedside. Patient is currently complaining of shortness of breath. He also reports having increased lower extremity swelling. He denied having any chest pain or pressure. Patient's vital signs are stable. The patient does have a history of alcohol abuse, although he states he has not been drinking recently. * EKG reveals sinus bradycardia cardia with no signs of acute ischemia * Chest xray mild interval progression of pulmonary findings. Small bilateral pleural effusions. * Laboratory data: Significant for BUN 31. Creatinine 2.97. Bilirubin 2.2. AST 117. ALT 252. Troponin 0.0-9. ProBNP 3800. Lipase 304. INR 1.4. * Current home cardiac medications include metoprolol tartrate 50 mg twice a day, Lasix 40 mg daily, Lipitor 40 mg at night, and Eliquis 5 mg twice a day * Patient underwent MARTHA on 09/20/2023 revealing ejection fraction 42%, mitral valve prolapse, moderate TR, severe MR * Cardiac catheterization history: Unknown REVIEW OF SYSTEMS: At the time of my exam: CONSTITUTIONAL: Denies fever or chills. HEENT: Denies blurred vision, vision changes, or eye pain. Denies hemoptysis CARDIOVASCULAR: Denies chest pain. Denies orthopnea. Denies PND. Denies palpitations RESPIRATORY: Denies shortness of breath. GASTROINTESTINAL: Denies abdominal pain. Denies nausea or vomiting. HEMATOLOGIC: Denies bleeding disorders. GENITOURINARY: Denies any blood in urine. SKIN: Denies pruitis. Denies rash. PHYSICAL EXAM: VITAL SIGNS: Reviewed. GENERAL: Well-developed in no acute distress. HEENT: Head is normocephalic. Pupils are equal, round. Sclerae anicteric. Mucous membranes of the mouth are moist. Neck supple. No JVD or thyromegaly LUNGS: Respirations even and unlabored. Lungs with bilateral crackles HEART: Regular rate and rhythm. S1 and S2 heard. Systolic murmur noted ABDOMEN: Soft. Nondistended. Nontender. EXTREMITIES: Normal range of motion. No clubbing or cyanosis. Peripheral pulses intact. 2+ bilateral lower extremity edema NEUROLOGIC: Awake and alert. Oriented x 3. ASSESSMENT: Acute kidney injury secondary to ATN secondary to cardiorenal syndrome Acute on chronic heart failure with reduced ejection fraction, 42% on recent MARTHA Transaminitis possibly from hepatic congestion versus hx of ETOH Paroxysmal atrial fibrillation, currently maintaining sinus mechanism History of MARTHA and cardioversion, 09/20/2023 History of previous cardioversion, 08/11/2023 Valvular heart disease including severe mitral regurgitation Nonischemic cardiomyopathy History of alcohol abuse Former nicotine dependence PLAN: Limited echo has been ordered. Await results. Statin therapy on hold secondary to elevated LFTs Continue IV Lasix 40 mg every 12 hours Daily weights, accurate I&O, and monitoring of kidney function Continue additional home cardiac medications Further recommendations pending patient's course Nurse practitioner note has been reviewed by physician. Signing provider agrees with the documented findings, assessment, and plan of care. Past Medical History Past Medical History: Atrial Fibrillation, Hearing Disorder / Deafness, Hyperlipidemia Additional Past Medical History / Comment(s): Trouble hearing on occasion. History of Any Multi-Drug Resistant Organisms: None Reported Past Surgical History: No Surgical Hx Reported Additional Past Surgical History / Comment(s): Cardioversion/MARTHA. Past Anesthesia/Blood Transfusion Reactions: No Reported Reaction Past Psychological History: No Psychological Hx Reported Smoking Status: Former smoker Past Alcohol Use History: None Reported Additional Past Alcohol Use History / Comment(s): Normally drinks a few beers daily, but has had no alcohol in one month. Past Drug Use History: None Reported - Past Family History Mother Family Medical History: No Reported History Medications and Allergies Home Medications Medication Instructions Recorded Confirmed Type Apixaban [Eliquis] 5 mg PO BID 30 Days #60 tab 08/12/23 09/29/23 Rx Atorvastatin [Lipitor] 40 mg PO HS 30 Days #30 tab 08/12/23 09/29/23 Rx Metoprolol Tartrate [Lopressor] 50 mg PO BID 30 Days #60 tab 08/12/23 09/29/23 Rx Furosemide [Lasix] 40 mg PO DAILY 09/29/23 09/29/23 History Allergies Allergy/AdvReac Type Severity Reaction Status Date / Time Penicillins AdvReac Nausea & Verified 09/29/23 19:21 Vomiting & Diarrhea Physical Exam Vitals: Vital Signs Temp Pulse Pulse Resp BP BP Pulse Ox 09/30/23 12:00 60 18 150/75 100 09/30/23 08:00 97.9 F 74 18 130/77 100 09/30/23 04:00 97.5 F L 66 17 144/89 98 09/30/23 02:00 68 17 09/30/23 00:00 97.7 F 68 17 143/82 99 09/29/23 20:57 64 18 155/92 99 09/29/23 20:00 64 17 09/29/23 18:06 59 L 18 142/81 99 09/29/23 15:12 97.9 F 59 L 16 114/70 99 Intake and Output 09/29/23 09/30/23 09/30/23 22:59 06:59 14:59 Intake Total 0 360 Balance 0 360 Intake: Oral 0 360 Other: Voiding Method Toilet Toilet Toilet # Voids 4 1 Weight 65.771 kg Results 09/30/23 08:05 09/30/23 08:05 Cardiac Enzymes 09/29/23 09/29/23 09/30/23 Range/Units 15:28 15:28 08:05 AST 117 H 74 H (17-59) U/L Troponin I 0.029 (0.000-0.034) ng/mL Coagulation 09/29/23 Range/Units 15:28 PT 14.3 H (10.0-12.5) sec APTT 27.6 (22.0-30.0) sec CBC 09/29/23 09/30/23 Range/Units 15:28 08:05 WBC 7.0 7.6 (3.8-10.6) k/uL RBC 4.86 4.51 (4.30-5.90) m/uL Hgb 16.2 15.5 (13.0-17.5) gm/dL Hct 51.1 48.3 (39.0-53.0) % Plt Count 61 L D 58 L (150-450) k/uL Comprehensive Metabolic Panel 09/29/23 09/30/23 Range/Units 15:28 08:05 Sodium 136 L 137 (137-145) mmol/L Potassium 3.9 3.1 L (3.5-5.1) mmol/L Chloride 101 100 (98-107) mmol/L Carbon Dioxide 25 29 (22-30) mmol/L BUN 31 H 30 H (9-20) mg/dL Creatinine 2.97 H 2.80 H (0.66-1.25) mg/dL Glucose 74 90 (74-99) mg/dL Calcium 8.2 L 8.1 L (8.4-10.2) mg/dL AST 117 H 74 H (17-59) U/L ALT 252 H 197 H (4-49) U/L Alkaline Phosphatase 131 H 152 H (38-126) U/L Total Protein 6.1 L 5.2 L (6.3-8.2) g/dL Albumin 3.2 L 2.7 L (3.5-5.0) g/dL Current Medications Generic Name Dose Route Start Last Admin Trade Name Freq PRN Reason Stop Dose Admin Apixaban 5 mg 09/29/23 22:15 09/30/23 12:34 Apixaban 5 Mg Tab PO 5 mg BID MIQUEL Administration Protocol Furosemide 40 mg 09/30/23 09:15 09/30/23 09:41 Furosemide 10 Mg/Ml 4 Ml Vial IV 40 mg Q12HR MIQUEL Administration Magnesium Sulfate/Dextrose 1 100 mls @ 100 mls/hr 09/30/23 11:30 09/30/23 12:22 gm/ IV Solution IVPB 09/30/23 13:29 100 mls/hr Q1H MIQUEL Administration Protocol Metoprolol Tartrate 50 mg 09/29/23 22:15 09/30/23 11:23 Metoprolol Tartrate 50 Mg Tab PO Not Given BID [facility] Miscellaneous Information 1 each 09/30/23 11:20 Magnesium Replacement Protocol 1 Each Misc MISCELLANE DAILY PRN Per Protocol Protocol Miscellaneous Information 1 each 09/30/23 11:21 Potassium Replacement Protocol 1 Each Misc MISCELLANE DAILY PRN Per Protocol Protocol Naloxone HCl 0.2 mg 09/29/23 17:53 Naloxone 0.4 Mg/Ml 1 Ml Vial IV Q2M PRN Opioid Reversal Potassium Chloride 20 meq 09/30/23 12:00 09/30/23 12:22 Potassium Chloride Er 20 Meq Tab.Er PO 09/30/23 14:01 20 meq Q1HR MIQUEL Administration Protocol Intake and Output 09/29/23 09/30/23 09/30/23 22:59 06:59 14:59 Intake Total 0 360 Balance 0 360 Intake: Oral 0 360 Other: Voiding Method Toilet Toilet Toilet # Voids 4 1 Weight 65.771 kg 09/30/23 08:05 09/30/23 08:05
[2023-09-30 14:58] VITALS: BMI 21.4
[2023-09-30 19:37] LABS: Appearance,Urine Clear (Clear); Bilirubin,Urine Negative (Negative); Blood,Urine Negative (Negative); Color,Urine Yellow; Glucose,Urine (UA) Trace (Negative); Ketones,Urine Negative (Negative); Protein,Urine Negative (Negative); Specific Gravity,Urine 1.015 (1.001-1.035)
[2023-09-30 19:38] LABS: Leukocyte Esterase,Urine Negative (Negative); Nitrite,Urine Negative (Negative); Urobilinogen,Urine <0.2 mg/dL (<2.0)
[2023-10-01] MEDS: METOPROLOL TARTRATE 50 MG TAB PO SCH ×2 (08:46→22:24)
[2023-10-01] MEDS: FUROSEMIDE 10 MG/ML 4 ML VIAL IV SCH ×2 (08:46→22:19)
[2023-10-01] MEDS: APIXABAN 5 MG TAB PO SCH ×2 (08:46→22:23)
--- NOTE | 2023-10-01 10:48 | P.PN ---
Subjective Patient is seen for follow-up for acute kidney injury. He is currently being diuresed for volume overload. Serum creatinine at 2.8 from 3.3 on initial admission. Good urine output. 24-hour urine output at 2.5 L. No shortness of breath today. Objective - Vital Signs Vital signs: Vital Signs Temp 98.5 F 10/01/23 08:00 Pulse 68 10/01/23 08:00 Resp 16 10/01/23 08:00 BP 117/66 10/01/23 08:00 Pulse Ox 98 10/01/23 08:00 FiO2 Intake & Output 09/30/23 10/01/23 10/01/23 18:59 06:59 18:59 Intake Total 838 600 Output Total 1500 1000 2725 Balance -981 -1948 -8736 Weight 65.771 kg Intake: Oral 838 600 Output: Urine 1500 1000 2725 Other: Voiding Method Toilet Toilet Toilet # Voids 2 - Exam Patient is awake, comfortable, no acute distress Alert oriented 3 Examination of the heart S1 and S2 Examination the lungs bilateral breath sounds are heard Abdomen is soft nontender Examination lower extremity shows edema 1+ bilaterally - Labs CBC & Chem 7: 09/30/23 08:05 09/30/23 08:05 Labs: Abnormal Lab Results - Last 24 Hours (Table) 09/30/23 Range/Units 08:05 MCV 107.2 H (80.0-100.0) fL RDW 15.7 H (11.5-15.5) % Plt Count 58 L (150-450) k/uL Macrocytosis Marked A Assessment and Plan Assessment: 1. Acute kidney injury secondary to ATN secondary to cardiorenal syndrome. Creatinine 3.3 on admission and is 2.8 yesterday. Creatinine near 1 in July 2023. No hydronephrosis noted on ultrasound done on 08/17/2023 2. Acute on chronic systolic CHF with ejection fraction of 50% with severe tricuspid regurgitation and moderate to severe mitral stenosis. 3. Volume overload. 4. A. fib status post MARTHA with cardioversion in July and August 2023. 5. Hypokalemia from diuresis and hypomagnesemia. 6. Hypomagnesemia from diuresis. 7. Elevated liver enzymes. Possibly from amiodarone. Defer management to primary team. Plan: Continue with IV Lasix. Follow-up on labs from today. Check bladder scan rule out urinary retention
[2023-10-01 10:59] LABS: HCT 51.6 % (39.0-53.0); HGB 16.3 gm/dL (13.0-17.5); Hypochromasia Moderate; MCH 33.7 pg (25.0-35.0); MCHC 31.6 g/dL (31.0-37.0); MCV 106.4 fL (80.0-100.0); Macrocytosis Moderate; Mean Platelet Volume 9.5; RBC 4.85 m/uL (4.30-5.90); RDW 15.6 % (11.5-15.5); WBC 6.8 k/uL (3.8-10.6)
[2023-10-01 11:08] LABS: ALT 162 U/L (4-49); AST 57 U/L (17-59); African American GFR (CKD) 30 (>60 ml/min/1.73 sqM); Albumin 2.8 g/dL (3.5-5.0); Alkaline Phosphatase 112 U/L (38-126); Anion Gap 6 mmol/L; Blood Urea Nitrogen 35 mg/dL (9-20); Calcium 8.4 mg/dL (8.4-10.2); Carbon Dioxide 34 mmol/L (22-30); Chloride 96 mmol/L (98-107); Glucose 143 mg/dL (74-99); Non-African American GFR(CKD) 26 (>60 ml/min/1.73 sqM); Potassium 3.7 mmol/L (3.5-5.1); Sodium 136 mmol/L (137-145); Total Bilirubin 2.5 mg/dL (0.2-1.3); Total Protein 5.4 g/dL (6.3-8.2)
[2023-10-01 11:23] LABS: Platelet Count 60 k/uL (150-450)
--- NOTE | 2023-10-01 13:55 | P.PN ---
Subjective Progress Note Date: 10/01/23 58-year-old male with A. fib status post cardioversion 08/11/2023 on Eliquis, dyslipidemia. Patient was sent in from his insurance rater office due to abnormal blood work with elevated liver enzymes and acute kidney injury. Patient noted increase abdominal swelling scrotum swelling and leg edema bilaterally. When he was discharged from the hospital he was on the low dose Lasix for about a week for diastolic CHF exacerbation since he ran out of Lasix he started noticing increased edema. He does admit to history of alcoholism however he claims that he quit drinking since his last hospital stay on August 09. He does admit to tobacco smoking. During his last hospital stay he also had elevated bilirubin abdominal ultrasound showed no gallbladder abnormalities. In the ED he underwent extensive evaluation Vital signs stable. CBC MCV 105.3, Plt 61 INR 1.4. CMP Na 136, BUN 31, Cr 2.97, T. Bili 2.2, AST 117, ALT 252, alk phos 131, alb 3.2. Troponin 0.029. BNP 3800. Lipase 604. EKG sinus bradycardia with Q waves. CXR small bilateral pleural effusions with increased right lower lung consolida tion. He was admitted for further management and workup. Started on Lasix 40 IV BID. Cardiology and Nephrology consulted. 09/30 Patient was seen and examined. CBC MCV 107.2 and Plt 58. CMP K 3.1, BUN 30, Cr 2.8, Ca 8.1, T. Bili 2.4, AST 74, ALT 197, alk phos 152, alb 2.7. Mag 1.5. Renal and bladder US ordered. Liver US ordered. 10/01 Patient was seen and examined. Feels better. Swelling better. UA negative. Echo shows EF 55-60%. Previous MARTHA on 08/2023 showed EF 42%. CBC Hg 8.7. BMP Na 134, BUN 24, Cr 2.45, glu 185, Ca 8.3. Diuresed with Lasix 40 mg IV BID. Liver and renal bladder US to be done today. Nephrology recommends continued diuresis. General: non toxic, no distress, appears at stated age Derm: warm, dry Head: atraumatic, normocephalic, symmetric Eyes: EOMI, no lid lag, anicteric sclera Cardiovascular: S1S2 reg, no murmur Lungs: CTA bilateral, no rhonchi, no rales , no accessory muscle use Ext: no gross muscle atrophy, no edema, no contractures Neuro: no focal neuro deficits Psych: Alert, oriented, appropriate affect Based on my assessment of this patient, this patient meets a high complexity level of care. Patient has a history of diastolic CHF with severe exacerbation or progression of disease which poses a threat to life or bodily function. Also with worsening renal and liver function. Acute on chronic diastolic CHF exacerbation: Lasix 40 mg IV BID. Echo as above. Strict intake and outtake. Daily weights. Cardiology on board. Acute kidney injury concerns for cardiorenal syndrome: Renal and bladder US. Avoid nephrotoxic meds. Nephrology on board. Obstructive transaminitis: Liver and GB US. Possible EtOH. Hold statin. Trend. Supratherapeutic INR: Likely related to liver dysfunction. Thrombocytopenia: Likely related to EtOH abuse. Monitor. Avoid heparin. Macrocytosis: Likely related to EtOH abuse. CODE STATUS: FULL CODE DVT Prophylaxis: SCD GI Prophylaxis: Designated medical POA if patient is not able to make medical decisions for themselves: I have reviewed the following it architecture consultant notes: Cardiology note. Nephrology note. I have reviewed the results of the following tests: CBC, CMP. I have ordered the following tests: Liver, Renal Bladder US. I have discussed the care of this patient with the following independent historian: I have independently interpreted the following test below: I have discussed the management of this patient with the following physician: This patient has a high risk of morbidity due to the following reasons: This patient meets a high level of care for the following reasons: Patient requires IV lasix which requires intensive monitoring for renal toxicity. Objective - Vital Signs Vital signs: Vital Signs Temp 98.0 F 10/01/23 04:00 Pulse 67 10/01/23 04:00 Resp 18 10/01/23 04:00 BP 105/69 10/01/23 04:00 Pulse Ox 98 10/01/23 04:00 FiO2 Intake & Output 09/30/23 10/01/23 10/01/23 18:59 06:59 18:59 Intake Total 838 600 Output Total 1500 1000 2725 Balance -082 -1000 -4958 Weight 65.771 kg Intake: Oral 838 600 Output: Urine 1500 1000 2725 Other: Voiding Method Toilet Toilet # Voids 2 - Labs CBC & Chem 7: 10/01/23 09:48 10/01/23 09:48 Labs: Abnormal Lab Results - Last 24 Hours (Table) 09/30/23 09/30/23 Range/Units 08:05 08:05 MCV 107.2 H (80.0-100.0) fL RDW 15.7 H (11.5-15.5) % Plt Count 58 L (150-450) k/uL Macrocytosis Marked A Potassium 3.1 L (3.5-5.1) mmol/L BUN 30 H (9-20) mg/dL Creatinine 2.80 H (0.66-1.25) mg/dL Calcium 8.1 L (8.4-10.2) mg/dL Magnesium 1.5 L (1.6-2.3) mg/dL Total Bilirubin 2.4 H (0.2-1.3) mg/dL AST 74 H (17-59) U/L ALT 197 H (4-49) U/L Alkaline Phosphatase 152 H (38-126) U/L Total Protein 5.2 L (6.3-8.2) g/dL Albumin 2.7 L (3.5-5.0) g/dL
--- NOTE | 2023-10-01 14:53 | US ---
EXAMINATION TYPE: US abd limited kidneys/bladder DATE OF EXAM: 10/01/2023 COMPARISON: US CLINICAL INDICATION: Male, 58 years old with history of Obstructive transaminitis; Abnormal labs TECHNIQUE: Multiple sonographic images of the right upper quadrant, bilateral kidneys, and bladder ar e obtained. FINDINGS: EXAM MEASUREMENTS: Liver Length: 13.8 cm Gallbladder Wall: 0.4 cm CBD: 0.3 cm Right Kidney: 11.0 x 4.9 x 5.0 cm Left Kidney: 10.2 x 5.0 x 5.0 cm Pancreas: 2mm duct visualized, tail obscured by overlying bowel gas Liver: Visualized portions appeared wnl Gallbladder: Slightly contracted, wall thickened. CBD: wnl Right Kidney: No evidence of hydro, lower pole gassed out Left Kidney: No evidence of hydro, upper and lower poles gassed out Bladder: wnl Bilateral Jets Seen Only right jet visualized Incidental findings of right pleural effusion, and small amount of ascites adjacent to liver CRM MARKETING SPECIALIST NOTES: IMPRESSION: 1. Clinical correlation for acalculous cholecystitis.
--- NOTE | 2023-10-01 18:12 | P.PN ---
Subjective Progress Note Date: 10/01/23 HISTORY OF PRESENT ILLNESS: This is a 58-year-old male with a past medical history significant for paroxysmal atrial fibrillation, mitral valve regurgitation, hyperlipidemia, former nicotine dependence, and nonischemic cardiomyopathy. Patient follows in the office with Dr. Guerrero. We have been asked to see the patient in consultation for congestive heart failure. Patient recently underwent MARTHA and cardioversion on 09/20/2023. Patient was seen in the office on 09/28/2023 for a follow-up visit. At that time his amiodarone was discontinued and the patient was started on Lasix 40 mg daily. He also had outpatient labs drawn. The patient states he was notified yesterday via phone that his labs were abnormal and he was instructed to come to the emergency room for further evaluation. The patient was examined this morning at the bedside. Patient is currently complaining of shortness of breath. He also reports having increased lower extremity swelling. He denied having any chest pain or pressure. Patient's vital signs are stable. The patient does have a history of alcohol abuse, although he states he has not been drinking recently. * EKG reveals sinus bradycardia cardia with no signs of acute ischemia * Chest xray mild interval progression of pulmonary findings. Small bilateral pleural effusions. * Laboratory data: Significant for BUN 31. Creatinine 2.97. Bilirubin 2.2. AST 117. ALT 252. Troponin 0.0-9. ProBNP 3800. Lipase 304. INR 1.4. * Current home cardiac medications include metoprolol tartrate 50 mg twice a day, Lasix 40 mg daily, Lipitor 40 mg at night, and Eliquis 5 mg twice a day * Patient underwent MARTHA on 09/20/2023 revealing ejection fraction 42%, mitral valve prolapse, moderate TR, severe MR * Cardiac catheterization history: Unknown 10/01/2023 Patient is doing well from cardiac vessel standpoint. He denies having any chest pain chest pressure or shortness of breath. He has good urine output with IV diuretic therapy. His renal function has slightly improved as compared to before. PHYSICAL EXAM: VITAL SIGNS: Reviewed. GENERAL: Well-developed in no acute distress. HEENT: Head is normocephalic. Pupils are equal, round. Sclerae anicteric. Mucous membranes of the mouth are moist. Neck supple. No JVD or thyromegaly LUNGS: Respirations even and unlabored. Lungs with bilateral crackles HEART: Regular rate and rhythm. S1 and S2 heard. Systolic murmur noted ABDOMEN: Soft. Nondistended. Nontender. EXTREMITIES: Normal range of motion. No clubbing or cyanosis. Peripheral pulses intact. 2+ bilateral lower extremity edema NEUROLOGIC: Awake and alert. Oriented x 3. ASSESSMENT: Acute kidney injury secondary to ATN secondary to cardiorenal syndrome Acute on chronic heart failure with reduced ejection fraction, 42% on recent MARTHA Transaminitis possibly from hepatic congestion versus hx of ETOH Paroxysmal atrial fibrillation, currently maintaining sinus mechanism History of MARTHA and cardioversion, 09/20/2023 History of previous cardioversion, 08/11/2023 Valvular heart disease including severe mitral regurgitation Nonischemic cardiomyopathy History of alcohol abuse Former nicotine dependence PLAN: Continue IV Lasix 40 mg every 12 hours Moderate number function. If kidney function stable and better tomorrow, patient is cleared to be discharged from cardiac vessel standpoint on Lasix 40 mg daily at home Continue Eliquis and metoprolol Objective - Vital Signs Vital signs: Vital Signs Temp 97.7 F 10/01/23 16:00 Pulse 68 10/01/23 16:00 Resp 16 10/01/23 16:00 BP 125/73 10/01/23 16:00 Pulse Ox 98 10/01/23 08:00 FiO2 Intake & Output 09/30/23 10/01/23 10/01/23 18:59 06:59 18:59 Intake Total 838 718 Output Total 1500 1000 4000 Balance -778 -1780 -2997 Weight 65.771 kg Intake: Oral 838 718 Output: Urine 1500 1000 4000 Other: Voiding Method Toilet Toilet Toilet # Voids 2 - Labs CBC & Chem 7: 10/01/23 09:48 10/01/23 09:48 Labs: Abnormal Lab Results - Last 24 Hours (Table) 10/01/23 10/01/23 Range/Units 09:48 09:48 MCV 106.4 H (80.0-100.0) fL RDW 15.6 H (11.5-15.5) % Plt Count 60 L (150-450) k/uL Sodium 136 L (137-145) mmol/L Chloride 96 L (98-107) mmol/L Carbon Dioxide 34 H (22-30) mmol/L BUN 35 H (9-20) mg/dL Creatinine 2.63 H (0.66-1.25) mg/dL Glucose 143 H (74-99) mg/dL Total Bilirubin 2.5 H (0.2-1.3) mg/dL ALT 162 H (4-49) U/L Total Protein 5.4 L (6.3-8.2) g/dL Albumin 2.8 L (3.5-5.0) g/dL
[2023-10-02] MEDS: METOPROLOL TARTRATE 50 MG TAB PO SCH (08:47)
[2023-10-02] MEDS: APIXABAN 5 MG TAB PO SCH (08:47)
[2023-10-02] MEDS: FUROSEMIDE 10 MG/ML 4 ML VIAL IV SCH (08:47)
--- NOTE | 2023-10-02 11:26 | P.PN ---
Subjective Patient is seen for follow-up for acute kidney injury. He is currently being diuresed for volume overload. Serum creatinine down to 2.6 from 3.3 on initial admission. Good urine output. 24-hour urine output at 4.9 L. No shortness of breath today. Objective - Vital Signs Vital signs: Vital Signs Temp 97.8 F 10/02/23 08:00 Pulse 66 10/02/23 08:00 Resp 18 10/02/23 08:00 BP 116/74 10/02/23 08:00 Pulse Ox 98 10/02/23 08:00 FiO2 Intake & Output 10/01/23 10/02/23 10/02/23 18:59 06:59 18:59 Intake Total 958 240 Output Total 4000 900 Balance -3042 -900 240 Intake: Oral 958 240 Output: Urine 4000 900 Other: Voiding Method Toilet Toilet Toilet # Voids 2 - Exam Patient is awake, comfortable, no acute distress Alert oriented 3 Examination of the heart S1 and S2 Examination the lungs bilateral breath sounds are heard Abdomen is soft nontender OFFICE SERVICES ASSOCIATE exam grossly intact Examination lower extremity shows edema 1+ bilaterally - Labs CBC & Chem 7: 10/01/23 09:48 10/01/23 09:48 Labs: Abnormal Lab Results - Last 24 Hours (Table) 10/01/23 Range/Units 09:48 MCV 106.4 H (80.0-100.0) fL RDW 15.6 H (11.5-15.5) % Plt Count 60 L (150-450) k/uL Assessment and Plan Assessment: 1. Acute kidney injury secondary to ATN secondary to cardiorenal syndrome. Creatinine 3.3 on admission and is 2.6 today. Creatinine near 1 in July 2023. No hydronephrosis noted on ultrasound done on 08/17/2023 2. Acute on chronic systolic CHF with ejection fraction of 50% with severe tricuspid regurgitation and moderate to severe mitral stenosis. 3. Volume overload. 4. A. fib status post MARTHA with cardioversion in July and August 2023. 5. Hypokalemia from diuresis and hypomagnesemia. 6. Hypomagnesemia from diuresis. 7. Elevated liver enzymes. Possibly from amiodarone. Defer management to primary team. Currently improving. Plan: Okay for discharge from nephrology standpoint Follow-up as outpatient in 1-2 weeks. Diuretics can be switched to oral.
[2023-10-02 11:40] VITALS: PULSE 66; RESP 18
[2023-10-02 13:34] LABS: HCT 48.6 % (39.0-53.0); HGB 15.6 gm/dL (13.0-17.5); Hypochromasia Slight; MCH 33.8 pg (25.0-35.0); MCHC 32.1 g/dL (31.0-37.0); MCV 105.2 fL (80.0-100.0); Macrocytosis Moderate; RBC 4.62 m/uL (4.30-5.90); RDW 15.2 % (11.5-15.5); WBC 7.4 k/uL (3.8-10.6)
[2023-10-02 13:35] VITALS: BP 114/74; TEMP 97.9
--- NOTE | 2023-10-02 13:35 | P.DS ---
Providers Date of admission: 09/29/23 17:53 Expected date of discharge: 10/02/23 Attending physician: Tania Tapia DO Consults: 09/29/23 17:53 Consult Physician Routine Consulting Provider: Caden Dean Consult Reason/Comments: CHF Do you want consulting provider notified?: Yes Consult Physician Routine Consulting Provider: Diana Fuentes Consult Reason/Comments: AKHIL Do you want consulting provider notified?: Yes Primary care physician: Ariel Castro [facility] Course: 58-year-old male with A. fib status post cardioversion 08/11/2023 on Eliquis, dyslipidemia. 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 Patient noted increase abdominal swelling scrotum swelling and leg edema paola aterally. When he was discharged from the hospital he was on the low dose Lasix for about a week for diastolic CHF exacerbation since he ran out of Lasix he started noticing increased edema. He does admit to history of alcoholism however he claims that he quit drinking since his last hospital stay on August 09. He does admit to tobacco smoking. During his last hospital stay he also had elevated bilirubin abdominal ultrasound showed no gallbladder abnormalities. In the ED he underwent extensive evaluation Vital signs stable. CBC MCV 105.3, Plt 61 INR 1.4. CMP Na 136, BUN 31, Cr 2.97, T. Bili 2.2, AST 117, ALT 252, alk phos 131, alb 3.2. Troponin 0.029. BNP 3800. Lipase 604. EKG sinus bradycardia with Q waves. CXR small bilateral pleural effusions with increased right lower lung cons olidation. He was admitted for further management and workup. Started on Lasix 40 IV BID. Cardiology and Nephrology consulted. 09/30 Renal and bladder US ordered. Liver US ordered. 10/01 Feels better. Swelling better. Echo shows EF 55-60%. Previous MARTHA on 08/2023 showed EF 42%. Diuresed with Lasix 40 mg IV BID. Negative 1662 cc fluid balance over the past 24H. Liver and renal bladder US to be done today. Nephrology recommends continued diuresis. 10/02 Patient was seen and examined. Feels great. Nephrology and Cardiology recommends transition to PO Lasix, cleared for discharge. Negative 3942 cc fluid balance over the past 24H. Liver and Renal US shows slightly contracted GB wall thickening. Patient is afebrile, hemodynamically stable with no leukocytosis. Plans to follow up with PCP within 1-2 days of discharge. Follow up with Pulmonology and Nephrology within 1 week of discharge. Repeat CMP in 3 days, follow up results with PCP. Prescription for Lasix sent to the pharmacy. Pertinent studies include CXR, Renal bladder US, Liver US, Echo. General: non toxic, no distress, appears at stated age Derm: warm, dry Head: atraumatic, normocephalic, symmetric Eyes: EOMI, no lid lag, anicteric sclera Cardiovascular: S1S2 reg, no murmur Lungs: CTA bilateral, no rhonchi, no rales , no accessory muscle use Ext: no gross muscle atrophy, no edema, no contractures Neuro: no focal neuro deficits Psych: Alert, oriented, appropriate affect Discharge Diagnosis: Acute on chronic diastolic CHF exacerbation Acute kidney injury concerns for cardiorenal syndrome Obstructive transaminitis Supratherapeutic INR Thrombocytopenia Macrocytosis This complex discharge took 35 minutes to complete. Patient Condition at Discharge: Stable Plan - Discharge Summary Discharge Rx Participant: Yes New Discharge Prescriptions: Continue Metoprolol Tartrate [Lopressor] 50 mg PO BID 30 Days #60 tab Apixaban [Eliquis] 5 mg PO BID 30 Days #60 tab Atorvastatin [Lipitor] 40 mg PO HS 30 Days #30 tab Furosemide [Lasix] 40 mg PO DAILY #30 tab Discharge Medication List Apixaban [Eliquis] 5 mg PO BID 30 Days #60 tab 08/12/23 [Rx] Atorvastatin [Lipitor] 40 mg PO HS 30 Days #30 tab 08/12/23 [Rx] Metoprolol Tartrate [Lopressor] 50 mg PO BID 30 Days #60 tab 08/12/23 [Rx] Furosemide [Lasix] 40 mg PO DAILY #30 tab 10/02/23 [Rx] Follow up Appointment(s)/Referral(s): Solomon Cisneros MD [Medical Doctor] - 1 Week Diana Fuentes MD [STAFF PHYSICIAN] - 1 Week Dmitry Olson PAC [Family Provider] - 1-2 days Ambulatory/Diagnostic Orders: Comprehensive Metabolic Panel [LAB.AMB] Time Frame: 3 Days, Location: None Selected Activity/Diet/Wound Care/Special Instructions: Diet: Low salt. Fluid restriction to 1.5L. Repeat CMP in 3 days. Follow up with PCP for results. Follow up with Nephrology and Cardiology within 1 week of discharge. Discharge Disposition: HOME SELF-CARE
[2023-10-02 13:39] LABS: Platelet Count 72 k/uL (150-450)
[2023-10-02 13:57] LABS: ALT 125 U/L (4-49); AST 77 U/L (17-59); African American GFR (CKD) 33 (>60 ml/min/1.73 sqM); Alkaline Phosphatase 119 U/L (38-126); Anion Gap 8 mmol/L; Blood Urea Nitrogen 43 mg/dL (9-20); Calcium 8.3 mg/dL (8.4-10.2); Carbon Dioxide 35 mmol/L (22-30); Chloride 93 mmol/L (98-107); Glucose 112 mg/dL (74-99); Non-African American GFR(CKD) 29 (>60 ml/min/1.73 sqM); Potassium 3.1 mmol/L (3.5-5.1); Sodium 136 mmol/L (137-145); Total Bilirubin 2.1 mg/dL (0.2-1.3); Total Protein 5.7 g/dL (6.3-8.2)
[2023-10-02] MEDS: POTASSIUM CHLORIDE ER 20 MEQ TAB.ER PO SCH ×2 (15:11→16:22)
== END 2023-10-02 16:50 | disposition home or self-care (01) | DRG 291 ==
LOC: EC 14:55 → 3SCARD 17:53
PROVIDERS: ADMIT Internal Medicine; ATTEND Internal Medicine
DX: I13.0 Hypertensive heart and chronic kidney disease with heart failure and stage 1 through stage 4 chronic kidney disease, or unspecified chronic kidney disease (principal); I50.23 Acute on chronic systolic (congestive) heart failure; N17.0 Acute kidney failure with tubular necrosis; I48.92 Unspecified atrial flutter; D69.59 Other secondary thrombocytopenia; D75.89 Other specified diseases of blood and blood-forming organs; E11.22 Type 2 diabetes mellitus with diabetic chronic kidney disease; I08.1 Rheumatic disorders of both mitral and tricuspid valves; E78.5 Hyperlipidemia, unspecified; E83.42 Hypomagnesemia; E87.6 Hypokalemia; R74.01 Elevation of levels of liver transaminase levels; T46.2X5A Adverse effect of other antidysrhythmic drugs, initial encounter; X58.XXXA Exposure to other specified factors, initial encounter; Z71.6 Tobacco abuse counseling; Z79.01 Long term (current) use of anticoagulants; H91.90 Unspecified hearing loss, unspecified ear; I42.8 Other cardiomyopathies; I48.0 Paroxysmal atrial fibrillation; K76.89 Other specified diseases of liver; K81.9 Cholecystitis, unspecified; R00.1 Bradycardia, unspecified; K76.1 Chronic passive congestion of liver; N18.9 Chronic kidney disease, unspecified; N50.89 Other specified disorders of the male genital organs; R79.1 Abnormal coagulation profile; Z79.899 Other long term (current) drug therapy; Z88.0 Allergy status to penicillin; Z87.891 Personal history of nicotine dependence
CPT/HCPCS: 36415; 71046; 76705; 76770; 80053; 81003; 83605; 83690; 83735; 83880; 84484; 85025; 85027; 85610; 85730; 93005; 93308; 96374; 99285

== ENCOUNTER → 2023-09-29 | Outpatient (CLI) | payer OTHER ==
[2023-09-29 10:10] LABS: NT-Pro-B-Type Natriuretic Pept 3760 pg/mL
[2023-09-29 12:59] LABS: ALT 270 U/L (4-49); AST 115 U/L (17-59); African American GFR (CKD) 23 (>60 ml/min/1.73 sqM); Albumin 2.9 g/dL (3.5-5.0); Albumin/Globulin Ratio 1.1; Alkaline Phosphatase 143 U/L (38-126); Anion Gap 9 mmol/L; Blood Urea Nitrogen 31 mg/dL (9-20); Calcium 8.4 mg/dL (8.4-10.2); Carbon Dioxide 28 mmol/L (22-30); Chloride 99 mmol/L (98-107); Globulin 2.7 g/dL; Glucose 73 mg/dL (74-99); Non-African American GFR(CKD) 20 (>60 ml/min/1.73 sqM); Potassium 3.9 mmol/L (3.5-5.1); Sodium 136 mmol/L (137-145); Total Protein 5.6 g/dL (6.3-8.2)
[2023-09-29 18:27] LABS: HCT 45.1 % (39.6-50.0); HGB 15.2 g/dL (13.0-17.0); MCH 33.6 pg (27.0-32.0); MCHC 33.7 g/dL (32.0-37.0); MCV 99.8 FL (80.0-97.0); Mean Platelet Volume 13.1 FL (9.5-12.2); NRBC Per 100 WBC 0 X 10*3/uL (0.00-0.01); Platelet Count 76 X 10*3/uL (140-440); RBC 4.52 X 10*6/uL (4.40-5.60); RDW 16.9 % (11.5-14.5); WBC 6.54 X 10*3/uL (4.50-10.00)
== END | disposition home or self-care (01) ==
LOC: LABWHC1 08:00
PROVIDERS: ATTEND Internal Medicine Interventional Cardiology
DX: I50.31 Acute diastolic (congestive) heart failure (principal); I48.3 Typical atrial flutter; R60.1 Generalized edema
CPT/HCPCS: 36415; 80053; 83880; 85027

== ENCOUNTER → 2023-10-04 | Outpatient (CLI) | payer OTHER ==
[2023-10-05 02:28] LABS: ALT 121 U/L (10-49); AST 46 U/L (14-35); Albumin 3.8 g/dL (3.8-4.9); Albumin/Globulin Ratio 1.41 Ratio (1.60-3.17); Alkaline Phosphatase 108 U/L (41-126); BUN/Creat Ratio 13.76 Ratio (12.00-20.00); Blood Urea Nitrogen 23.4 mg/dL (9.0-27.0); Calcium 9.2 mg/dL (8.7-10.3); Carbon Dioxide 29.7 mmol/L (21.6-31.8); Chloride 99 mmol/L (96-109); Globulin 2.7 g/dL (1.6-3.3); Glucose 84 mg/dL (70-110); Potassium 4.2 mmol/L (3.5-5.5); Sodium 139 mmol/L (135-145); Total Bilirubin 1.5 mg/dL (0.3-1.2); Total Protein 6.5 g/dL (6.2-8.2)
== END | disposition home or self-care (01) ==
LOC: LABWHC1 15:26
PROVIDERS: ATTEND Internal Medicine Interventional Cardiology
DX: I34.0 Nonrheumatic mitral (valve) insufficiency (principal); N17.9 Acute kidney failure, unspecified; R79.89 Other specified abnormal findings of blood chemistry
CPT/HCPCS: 36415; 80053

== ENCOUNTER → 2023-11-08 | Outpatient (CLI) | payer OTHER ==
[2023-11-08 15:34] LABS: ALT 8 U/L (10-49); AST 20 U/L (14-35); Albumin 4.1 g/dL (3.8-4.9); Albumin/Globulin Ratio 1.64 Ratio (1.60-3.17); Alkaline Phosphatase 67 U/L (41-126); BUN/Creat Ratio 16.75 Ratio (12.00-20.00); Blood Urea Nitrogen 26.8 mg/dL (9.0-27.0); Calcium 9.8 mg/dL (8.7-10.3); Carbon Dioxide 24.1 mmol/L (21.6-31.8); Chloride 102 mmol/L (96-109); Globulin 2.5 g/dL (1.6-3.3); Glucose 91 mg/dL (70-110); Phosphorus 4.9 mg/dL (2.4-5.1); Potassium 4.3 mmol/L (3.5-5.5); Sodium 138 mmol/L (135-145); Total Protein 6.6 g/dL (6.2-8.2)
== END | disposition home or self-care (01) ==
LOC: LABWHC1 08:08
PROVIDERS: ATTEND Internal Medicine
DX: N17.9 Acute kidney failure, unspecified (principal)
CPT/HCPCS: 36415; 80053; 84100

== ENCOUNTER 2024-01-24 07:32 | Day surgery (SDC) | payer OTHER ==
[~2024-01-24 07:32] MED LIST changes: +ALPRAZolam 0.25 MG TAB PO PRN; +ALPRAZolam 0.5 MG TAB PO PRN; +HEPARIN SODIUM,PORCINE (1 ML) 2,500 UNIT in SODIUM CHLORIDE 0.9% 250 ML IRRIGATION PRN; +HEPARIN SODIUM,PORCINE 10,000 UNIT in SODIUM CHLORIDE 0.9% 1,000 ML IRRIGATION PRN; -LACTATED RINGERS 1,000 ML IV SCH; +NITROGLYCERIN SL TABS 0.4 MG TAB SUBLINGUAL PRN
[2024-01-24] MEDS: ASPIRIN 325 MG TAB PO ONE (07:58)
[2024-01-24] MEDS: SODIUM CHLORIDE 0.9% 1,000 ML in EMPTY BAG 1 BAG IV SCH (08:06)
[2024-01-24 08:08] VITALS: RESP 18; TEMP 98
[2024-01-24] MEDS ORDERED: VERAPAMIL 2.5 MG/ML 2 ML AMP ONE (09:03)
[2024-01-24] MEDS ORDERED: HEPARIN SODIUM 1,000 UN/ML (10ML VL) ONE (09:04)
[2024-01-24] MEDS ORDERED: LIDOCAINE 1% INJ 10MG/ML (20 ML MDV) ONE (09:04)
[2024-01-24] MEDS ORDERED: fentaNYL (PF) 50 MCG/ML 2 ML AMP ONE (09:09)
[2024-01-24] MEDS: BENZOCAINE SPRAY 1 CAN MUCOUS MEM ONE (09:10)
[2024-01-24] MEDS: MIDAZOLAM 2 MG/2 ML VIAL IVP ONE (09:24)
[2024-01-24] MEDS: fentaNYL (PF) 50 MCG/1 ML VIAL IVP ONE (09:25)
[2024-01-24] MEDS: IV FLUID CONTINUATION 1,000 ML IV ONE (09:26)
--- NOTE | 2024-01-24 09:42 | P.PCN ---
Date of Procedure: 01/24/24 Description of Procedure: Indication: Mitral regurgitation Procedure Description: After explaining the procedure to the patient, it's risk and complications, blood pressure, heart rate and O2 saturation were monitored. The throat was sprayed with Cetacaine. Patient received 2 mg intravenous Versed, 50 mcg intravenous fentanyl. The probe was introduced into the esophagus without difficulty. Images were obtained. Following that, the probe was removed. There was no immediate complication. Findings: Left atrial size is dilated, left atrial appendage is normal. Low ventricle size and systolic function are normal. The mitral valve revealed calcifications with mild bileaflet prolapse. The aortic valve revealed fibrocalcific changes of the tricuspid valve. The pulmonic valve and tricuspid valve are normal. Descending thoracic aorta is normal. Contrast bubble study revealed no shunting across the interatrial septum. Doppler: Pulse wave and color Doppler were obtained, and revealed severe eccentric mitral regurgitation with moderate to severe tricuspid regurgitation and trace to mild aortic and pulmonic regurgitation. There was no shunting across the interatrial septum. Conclusion: 1. Dilated left atrium with normal appearance of the left atrial appendage 2. Normal ventricle size and systolic function 3. Thickened mitral valve leaflets with bileaflet prolapse and severe eccentric mitral regurgitation 4. Moderate severe tricuspid regurgitation with mild pulmonary hypertension 5. Trace to mild aortic and pulmonic regurgitation 6. No shunting across the interatrial septum
[2024-01-24] MEDS: LIDOCAINE 1% INJ 10MG/ML (20 ML MDV) SQ ONE (09:49)
[2024-01-24] MEDS: VERAPAMIL SYRINGE (5 MG/10 ML) INTRAARTER ONE (09:50)
[2024-01-24] MEDS: HEPARIN SODIUM 1,000 UN/ML (10ML VL) IVP ONE (09:58)
[2024-01-24] MEDS: IOPAMIDOL-370 100ML BTL INJ ONE (10:24)
[2024-01-24 10:36] LABS: O2 Sat Blood Gas 61.6 %
[2024-01-24] MEDS ORDERED: RX INFO: IV CONTRAST WAS GIVEN 1 EACH MISC MISCELLANE PRN (10:36)
[2024-01-24 10:37] LABS: O2 Sat Blood Gas 59.2 %
[2024-01-24 10:39] LABS: O2 Sat Blood Gas 96.5 %
[2024-01-24] MEDS ORDERED: SODIUM CHLORIDE 0.9% 1,000 ML IV SCH (10:45)
--- NOTE | 2024-01-24 10:46 | P.CARDCATH ---
Date of Procedure: 01/24/24 Description of Procedure: Cardiac Catheterization: The patient is a 58-year-old male with a known history of atrial flutter, mitral regurgitation who has been complaining of dyspnea. Recommendations were made regarding cardiac catheterization, the risks and the complications were discussed with the patient who is in full understanding and agreement. 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 Using Xylocaine Anesthesia and modified Seldinger technique, a 6-[place] sheath was introduced in the right radial artery . The venous access catheter in the right basilic vein was exchanged over the wire to a 6 [place] sheath. Subsequently, selective coronary angiography was performed using a 5-[place] 3.5 bend Theresa catheter. Multiple views of the coronary artery including hemiaxial views were obtained. The 5 [place] pigtail catheter was used to cross the aortic valve and LVEDP was calculated. A 30 degree OLIVAREZ view of the left ventricle was obtained. Right heart catheterization was performed using [place]-Sofi catheter, multiple samples and pressures were calculated. Following that, catheter and sheath were removed. Hemostasis was obtained with deployment of vascular band an d compression on the right brachial area. There was no immediate complication. Patient was returned to room in stable condition. Of note, the patient received a total of 4000 units of intravenous heparin as well as intra-arterial verapamil. Findings: Fluoroscopy: Calcification of the mitral annulus was noted Left main: This is a large size vessel, bifurcating into LAD and left circumflex, left main has no evidence of obstructive disease LAD: This is a large size vessel, reaching to the apex with a wraparound apex segment giving rise to a large diagonal branch, the LAD and its branches have no obstructive disease Left circumflex: This is a nondominant vessel, moderate in caliber giving rise to 2 obtuse marginal branch that have no evidence of obstructive disease RCA: This is a dominant vessel bifurcating distally to PDA and PLV, the right coronary artery has no obstructive disease Left Ventriculogram: Performed in the OLIVAREZ view and revealed normal ventricular size and systolic function, the estimated ejection fraction is 65 to 70% with 4+ mitral regurgitation Hemodynamics: Left ventricular end-diastolic pressure of 20, there was no gradient across the aortic valve. RV systolic pressure of 50 with an end- diastolic of 18 mmHg, right atrium A wave of 16 V wave of 18 with a mean of 14 mmHg, pulmonary artery systolic of 50 with end-diastolic of 20 with a mean of 30 mmHg, pulmonary capillary wedge pressure A-wave of 34 with a V wave of 38 with a mean of 30 mmHg. The calculated mean gradient across the mitral valve was 12 mmHg with a calculated valve area 0.65 cm. Cardiac output by thermodilution of 3.7 L/min and an index of 2 L/min. Right atrial saturation 59%, pulmonary artery 62%, arterial 97%. Cardiac output by Ese 4.2 L/min with an index of 2.3 L/min/m. Conclusion: 1. No evidence of obstructive CAD 2. Normal ventricular size with 4+ mitral regurgitation and severe mitral stenosis 3. Mild to moderate pulmonary hypertension 4. Right dominance Recommendations: I have recommended to proceed with evaluation for mitral and tricuspid valve surgery in view of his presentation and findings. The findings and the recommendations were discussed with the patient and the family and they were in full understanding and agreement. Duration of sedation is 40 minutes.
[2024-01-24 14:53] VITALS: BP 134/72; PULSE 56
[2024-01-24] MEDS ORDERED: METOPROLOL TARTRATE 50 MG TAB PO SCH (21:00)
[2024-01-25] MEDS ORDERED: ATORVASTATIN 40 MG TAB PO SCH (09:00)
== END 2024-01-24 14:52 | disposition home or self-care (01) ==
LOC: CATHCVL 07:32
PROVIDERS: ATTEND Internal Medicine Interventional Cardiology
DX: I08.1 Rheumatic disorders of both mitral and tricuspid valves (principal); I48.0 Paroxysmal atrial fibrillation; I27.20 Pulmonary hypertension, unspecified; Z87.891 Personal history of nicotine dependence; Z88.0 Allergy status to penicillin; Z79.899 Other long term (current) drug therapy; Z79.01 Long term (current) use of anticoagulants
CPT/HCPCS: 93312; 93320; 93325; 93460; 85018; 82810; C1769 ×3; C1894; C1751; J2250; J2001; J1644; Q9967; J3010

== ENCOUNTER → 2025-03-12 | Outpatient (CLI) | payer OTHER ==
[2025-03-12 10:39] LABS: ALT 19 U/L (10-49); AST 27 U/L (14-35); Albumin 4.2 g/dL (3.8-4.9); Alkaline Phosphatase 98 U/L (41-126); BUN/Creat Ratio 12.17 Ratio (12.00-20.00); Blood Urea Nitrogen 14.6 mg/dL (9.0-27.0); Calcium 9.1 mg/dL (8.7-10.3); Carbon Dioxide 24.9 mmol/L (21.6-31.8); Chloride 109 mmol/L (96-109); Chol/HDL Ratio 2.27 Ratio; Globulin 2.8 g/dL (1.6-3.3); Glucose 96 mg/dL (70-110); LDL Cholesterol,Calculated 75.2 mg/dL (0.0-131.0); Sodium 144 mmol/L (135-145); Total Bilirubin 0.5 mg/dL (0.3-1.2); VLDL Calculation 13.94 mg/dL (5.00-40.00)
== END | disposition home or self-care (01) ==
LOC: LABWHC1 07:24
PROVIDERS: ATTEND Internal Medicine Interventional Cardiology
DX: I10 Essential (primary) hypertension (principal); E78.2 Mixed hyperlipidemia
CPT/HCPCS: 36415; 80053; 80061